=== PATIENT | female | born 1950 | race Caucasian/White ===

== ENCOUNTER 2016-08-21 08:12 | Day surgery (SDC) | payer OTHER ==
[2016-08-20 14:40] VITALS: BMI 34.0
[2016-08-21] MEDS ORDERED: LIDOCAINE HCL/PF 1% SDV 5ML VIAL ONE (09:02)
[2016-08-21] MEDS ORDERED: PROPOFOL 20 ML ONE ×2 (09:02)
[2016-08-21 09:56] VITALS: TEMP 97.5
[2016-08-21 10:38] VITALS: BP 121/63; PULSE 64
--- NOTE | 2016-08-24 12:51 | PATH ---
Surgical Pathology Report Patient Name: JENNI SINGH [facility]. Rec. #: [id number] /Age/Gender: 1950 (Age: 65) / F Account: [id number] Location: ASU-ENDOSCOPY Taken: 08/21/2016 Received: 08/21/2016 Reported: 08/24/2016 Physicians: Renzo Deleon M.D. Specimen(s) Received BX RECTAL POLYP Clinical History Diverticulosis, rectal polyp Final Diagnosis RECTUM, POLYP, BIOPSY: FRAGMENTS OF HYPERPLASTIC POLYP. Electronically Signed Scar Cantrell M.D. Gross Description Received in formalin, labeled "biopsy rectal polyp" are 2 acevedo, irregular portions of soft tissue measuring 0.1 and 0.2 cm in greatest dimension. The specimens are submitted in toto in one cassette. 08/21/201608/21/2016
== END 2016-08-21 10:55 | disposition home or self-care (01) ==
LOC: JASU-ENDO 08:12
PROVIDERS: ATTEND Internal Medicine Gastroenterology
PROC: 0DBP8ZX Excision of Rectum, Via Natural or Artificial Opening Endoscopic, Diagnostic (ICD-10-PCS; principal; 2016-08-21 09:00)
DX: Z12.11 Encounter for screening for malignant neoplasm of colon (principal); K62.1 Rectal polyp; K57.30 Diverticulosis of large intestine without perforation or abscess without bleeding; K64.8 Other hemorrhoids; Z98.0 Intestinal bypass and anastomosis status
CPT/HCPCS: 88305-TC

== ENCOUNTER → 2016-12-31 | Day surgery (SDC) | payer OTHER ==
--- NOTE | 2017-01-06 11:20 | PATH ---
Cytology Non-Gynecological Report Patient Name: HERNANDEZ SINGH [facility]. Rec. #: [id number] /Age/Gender: 1950 (Age: 66) / F Account: [id number] Location: RADIOLOGY Taken: 12/31/2016 Received: 12/31/2016 Reported: 01/04/2017 Physicians: Diamante Colindres M.D. Specimen(s) Received RIGHT THYROID FNA Clinical History Right thyroid nodule, 4.0 x 2.7 x 2.98 cm Final Diagnosis THYROID GLAND, RIGHT LOBE, US GUIDED FINE NEEDLE ASPIRATION BIOPSY: SATISFACTORY FOR EVALUATION. NO MALIGNANT CELLS IDENTIFIED. CONSISTENT WITH NODULAR GOITER WITH CYSTIC CHANGE (BENIGN FOLLICULAR NODULE, BETHESDA CATEGORY II, BENIGN), SEE COMMENT. Comment: The smears and the cell block show clusters of bland appearing follicular epithelial cells arranged in mixed micro- and macrofollicles and flat sheets. Many cells show Hurthle cell (oncocytic) changes. Macrophages are present indicative of cystic change. Colloid is present. Electronically Signed Scar Cantrell M.D. Gross Description Received are four air dried smears, four smears in 95% alcohol, and 20 cc of bloody fluid in formalin. Four diff-quik stained slides, four Pap stained slides and one cell block are made.
== END | disposition home or self-care (01) ==
LOC: JRADIR 08:42
PROVIDERS: ATTEND Internal Medicine
PROC: 0GBH3ZX Excision of Right Thyroid Gland Lobe, Percutaneous Approach, Diagnostic (ICD-10-PCS; principal; 2016-12-31)
PROC: BG44ZZZ Ultrasonography of Thyroid Gland (ICD-10-PCS; 2016-12-31)
DX: E04.1 Nontoxic single thyroid nodule (principal)
CPT/HCPCS: 76942; 88173; 88305-TC

== ENCOUNTER 2018-09-19 07:34 | Day surgery (SDC) | payer OTHER | END 2018-09-19 09:30 | disposition home or self-care (01) | LOC: JASU-ENDO 07:34 ==

== ENCOUNTER 2019-08-01 09:20 | Inpatient (IN) | payer OTHER ==
[2019-08-01] MEDS ORDERED: SODIUM CHLORIDE 1,000 ML IV STA (09:50)
[2019-08-01 10:31] LABS: BASO % 0.4 % (0-2.0); EOS % 0.2 % (0-4.5); HEMATOCRIT 45.3 % (32.4-45.2); HEMOGLOBIN 15.3 GM/dL (10.7-15.3); LYMPH % 9.6 % (8-40); MCH 32.2 pg (25.7-33.7); MCHC 33.8 g/dl (32.0-36.0); MEAN CELL VOLUME 95.4 fl (80-96); MEAN PLT VOLUME 9.1 fl (7.5-11.1); MONO % 9.8 % (3.8-10.2); PLATELET COUNT 288 K/MM3 (134-434); RBC 4.75 M/mm3 (3.60-5.2); RDW 13.3 % (11.6-15.6); WHITE BLOOD COUNT 18.1 K/mm3 (4.0-10.0)
[2019-08-01] MEDS ORDERED: ONDANSETRON 4 MG/2 ML VIAL IVPUSH ONE (10:37)
--- NOTE | 2019-08-01 10:37 | PDOC ---
Documentation entered by Blayne Martin SCRIBE, acting as scribe for Marcy Smiley MD. Marcy Smiley MD: This documentation has been prepared by the Veronica sweeney Nirvannie, SCRIBE, under my direction and personally reviewed by me in its entirety. I confirm that the documentation accurately reflects all work, treatment, procedures, and medical decision making performed by me. History of Present Illness - General Chief Complaint: Pain, Acute Stated Complaint: ABD PAIN/FEVER Time Seen by Provider: 08/01/19 09:51 History Source: Patient Exam Limitations: No Limitations - History of Present Illness Initial Comments: 08/01/19 10:53 68YOF, with a significant past medical history of HTN, diverticulitis (s/p 7cm colon resection, last [id number]), hypothyroidism, GERD, urinary frequency (s /p bladder/pelvic sling), and breast cyst, who presents to the emergency department with, 2-3 days of waxing and waning left-sided abdominal pain with associated decreased appetite, nausea, abdominal bloating, subjective fevers and chills. Patient describes her LUQ/LLQ pain radiating all over, currently a 6 /10, worsened with movement and eating. Patient notes her symptoms were worse yesterday and similar to her previous bouts of diverticulitis, prompting her arrival to the ED. She notes associated 1 day of constipation and 1 month of a cough. Denies chest pain, SOB, palpitations, dizziness, weakness, D, focal weakness/ paresthesias, leg swelling/pain, rash. No sick contacts, travel, or recent antibiotic. No new changes in medications. No suspicious food intake Allergies: Morphine Past Medical History/PSH: HTN, diverticulitis (s/p 7cm colon resection, last [id number]), GERD, urinary frequency (s/p urethral sling), and breast cyst, Cholecystectomy, Umbilical hernia repair, left knee replacement, unknown bilateral knee surgeries, unknown thyroid surgery. Social history: Lives with family. No tobacco, ETOH or drug use. Meds: as documented in EMR Family history: noncontributory PMD: Dr. Brenda Gagnon 08/01/19 12:31 Past History - Past Medical History Allergies/Adverse Reactions: Allergies Allergy/AdvReac Type Severity Reaction Status Date / Time morphine AdvReac Severe Vomiting Verified 08/01/19 09:30 Home Medications: Ambulatory Orders Hydrochlorothiazide [Hctz -] 12.5 mg PO DAILY 03/04/14 Levothyroxine [Synthroid -] 75 mcg PO DAILY 03/04/14 Metoprolol Succinate [Toprol Xl] 25 mg PO BID 03/04/14 Pantoprazole Sodium 40 mg PO DAILY 09/16/18 Candesartan Cilexetil [Atacand (Nf) -] 8 mg PO DAILY 08/01/19 Anemia: No Asthma: No Cancer: No Cardiac Disorders: No CVA: No COPD: No CHF: No Dementia: No Diabetes: Yes (BORDERLINE NO MED) GI Disorders: Yes Disorders: Yes (HAD UTI TREATED WITH ABX STARTED 05/30/15) HTN: Yes Hypercholesterolemia: Yes Liver Disease: No Seizures: No Thyroid Disease: Yes (H/O BENIGN MULTINODULAR GOITER, HYPO) - Surgical History Abdominal Surgery: Yes (RECURRENT DIVERTICULITIS 2003-SIGMOID COLON RESECTION) Appendectomy: No Cardiac Surgery: No Cholecystectomy: Yes (LAP) Lung Surgery: No Neurologic Surgery: No Orthopedic Surgery: Yes (LT KNEE REPLACEMENT) - Immunization History Immunization Up to Date: Yes - Psycho Social/Smoking Cessation Hx Smoking History: Never smoked Have you smoked in the past 12 months: No Hx Alcohol Use: No Drug/Substance Use Hx: No Substance Use Type: None Hx Substance Use Treatment: No Review of Systems - Review of Systems Able to Perform ROS?: Yes Comments:: 08/01/19 10:53 Constitutional: +Chills. +Subjective fevers. HEENT: no headache or dizziness. No congestion. No visual/hearing disturbances. CVS: no cp or syncope. Resp: no sob. +cough. Gastrointestinal: +LLQ/LUQ abdominal pain. no vomiting. no diarrhea or constipation Genitourinary: +Chronic frequency, no urinary urgency, dysuria or hematuria. MUSCULOSKELETAL: No joint pain and swelling. No neck or back pain. SKIN: no redness or skin changes, no discharge, no rash. No wounds. Hematologic: no easy bruising/bleeding. NEUROLOGIC: No headache, dizziness, LOC or altered mental status. No weakness, numbness or tingling. Psych: no anxiety or depression Allergic/Immunologic: no allergies All other systems reviewed and negative, or as documented in HPI. 08/01/19 12:32 *Physical Exam - Vital Signs Last Vital Signs Temp Pulse Resp BP Pulse Ox 97.9 F 99 H 16 133/79 99 08/01/19 09:31 08/01/19 09:31 08/01/19 09:31 08/01/19 09:31 08/01/19 09:31 - Physical Exam 08/01/19 10:53 General: Well appearing, awake and alert, NAD. HEENT: NCAT, PERRL, EOMI, clear conjunctiva, anicteric, moist mucous membranes , clear oropharynx, no oral lesions.. Neck: neck supple, FROM Resp: CTAB, normal and even respirations, no respiratory distress CVS: RRR, no murmurs, 2+ peripheral pulses throughout, no peripheral edema Abdomen: soft, +LUQ, LLQ abdominal tenderness. no rebound or guarding. No CVAT. +Abdominal surgical scars. Back: nontender, normal inspection and ROM MSK: no edema, JUAREZ x4, ROM intact. No clubbing or cyanosis. normal bulk and tone. Extremities: no calf tenderness +Blt lower venous varicosities left worse than right. Neuro: alert, oriented appropriately; no focal neurologic deficits Skin: warm and well perfused, cap refill <2 sec, normal color ED Treatment Course - LABORATORY CBC & Chemistry Diagram: 08/01/19 10:10 08/01/19 10:10 - ADDITIONAL ORDERS Additional order review: 08/01/19 10:10 RBC 4.75 MCV 95.4 MCHC 33.8 RDW 13.3 MPV 9.1 Neutrophils % 80.0 D Lymphocytes % 9.6 D Monocytes % 9.8 Eosinophils % 0.2 D Basophils % 0.4 - RADIOLOGY Radiology Studies Ordered: Category Date Time Status ABDOMEN & PELVIS CT WITH CONTR [CT] Stat CT Scan 08/01/19 10:34 Ordered Radiograph Interpretation: 08/01/19 11:42 Interpreted by ED Physician: CXR (2 view): no acute abnormality: no infiltrates , bones appear intact and structures normal alignment, cardiac silhouette within normal limits. no free air under diaphragm, no pneumothorax. Medical Decision Making - Medical Decision Making 08/01/19 10:36 Vital Signs Temp Pulse Resp BP Pulse Ox 97.9 F 99 H 16 133/79 99 08/01/19 09:31 08/01/19 09:31 08/01/19 09:31 08/01/19 09:31 08/01/19 09:31 vitals reviewed, wnl. afebrile, nontoxic appearing. DDx abdominal pain: Renal colic, biliary colic, metabolic/electrolyte derangements. GERD, PUD, esophageal spasm, pancreatitis, hepatitis, constipation , colitis, gastroenteritis, cholecystitis, UTI, pyelonephritis, ileus, SBO, medication side effect, hernia, appendicitis, diverticulitis, diverticular abscess, perforation. msk strain, mesenteric adenitis, psoas abscess. declines analgesia, 6/10 pain zofran and IVF PO contrast given prior surgery /complications, will need oral contrast to eval lumen. eval for complicated diverticular infection, cxr is clear, no e/o pna/effusion or edema. 08/01/19 11:06 Laboratory results reviewed, significant leukocytosis noted, 18 K, electrolytes are within normal limits, creatinine is normal. LFTs and lipase are also normal so unlikely to be pancreatitis or hepatitis. CT with p.o. contrast is pending to evaluate for diverticular disease/abscess/obstruction/perforation given complications with diverticulitis and recurrence in the past UA neg for infection, f/u cultures. 08/01/19 15:00 CT confirms acute diverticulitis w/o perf or abscess, cipro/flagyl IV given admitting to Dr Gagnon for acute uncomplicated diverticulitis, IV abx, NPO, bowel rest, pain control. prior history of complication, last time used levaquin and flagyl. Discharge - Discharge Information Problems reviewed: Yes Clinical Impression/Diagnosis: Acute diverticulitis Condition: Fair - Admission Yes - Follow up/Referral - Patient Discharge Instructions - Post Discharge Activity
[2019-08-01] MEDS ORDERED: ONDANSETRON 4 MG/2 ML VIAL ONE (10:48)
[2019-08-01 11:00] LABS: ALBUMIN 3.6 g/dl (3.4-5.0); BLOOD UREA NITROGEN 15.8 mg/dL (7-18); CALCIUM 9.1 mg/dL (8.5-10.1); CREATININE 0.7 mg/dL (0.55-1.3); TOT PROT 7.3 g/dl (6.4-8.2)
[2019-08-01 12:20] LABS: PH,URINE 5.5 (5.0-8.0); URINE APPEARANCE CLEAR; URINE BILIRUBIN NEGATIVE (NEGATIVE); URINE COLOR YELLOW; URINE GLUCOSE (UA) NEGATIVE (NEGATIVE); URINE KETONE NEGATIVE (NEGATIVE); URINE LEUK ESTERASE NEGATIVE (NEGATIVE); URINE NITRITE NEGATIVE (NEGATIVE); URINE PROTEIN NEGATIVE (NEGATIVE); URINE UROBILINOGEN 0.2 mg/dL (0.2-1.0)
[2019-08-01] MEDS ORDERED: CIPROFLOXACIN 400 MG/D5W 400 MG/200 ML IVPB IVPB ONE (14:20)
[2019-08-01] MEDS ORDERED: ONDANSETRON 4 MG/2 ML VIAL IVPUSH PRN (17:05)
[2019-08-01] MEDS ORDERED: ACETAMINOPHEN 1000 MG/100 ML VIAL (NON FORMULARY) IVPB PRN (17:05)
--- NOTE | 2019-08-01 17:44 | CON.GI ---
Consult Consult Specialty:: Gastroenterology Referred by:: Dr. Brenda Gagnon Reason for Consultation:: Abdominal pain - History of Present Illness Chief Complaint: left sided abdominal pain for last week that got worse yesterday History of Present Illness: 68F developed left lateral abdominal sydney last week associated with worsening of her constipation. It became markedly worse yesterday and associated with chills. The pain is reminiscent of her previous episodes of diverticulitis. She last had a colonoscopy on 08/21/16 which revealed residual diverticulosis and a patent sigmoid anastomosis ( previous surgery for recurrent diverticulitis) and when a hyperplastic rectal polyp was removed. - History Source History Provided By: Patient Limitations to Obtaining History: No Limitations - Past Medical History Cardio/Vascular: Yes: HTN, Hyperlipdemia Gastrointestinal: Yes: Diverticulitis, Gastritis (H. pylori gastritis treated 2004), GERD, Other (hyperplastic rectal polyp rmeoved 09/01, had polyps removed ' 05 and . Has EUS with Dr. Feirro to evaluate adenopathy that proved to be benign) Rheumatology: Yes: Other (osteoarthritis) Endocrine: Yes: Hypothyroidism (multinodular goiter s/p hemithyroidectomy ) - Past Surgical History Past Surgical History: Yes: Cholecystectomy (lap choly), Colectomy (partial left colectomy for recurrent diverticulitis 2003), Colonoscopy, Hernia Repair ( incisional hernia repair with mesh ), Joint Replacement (left TKR) Additional Surgical History: multinodular goiter s/p hemithyroidectomy. 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year[place] age 35 History of Recent Travel: No Home Medications - Allergies Allergies/Adverse Reactions: Allergies Allergy/AdvReac Type Severity Reaction Status Date / Time morphine AdvReac Severe Vomiting Verified 08/01/19 09:30 - Home Medications Home Medications: Ambulatory Orders Hydrochlorothiazide [Hctz -] 12.5 mg PO DAILY 03/04/14 Levothyroxine [Synthroid -] 75 mcg PO DAILY 03/04/14 Metoprolol Succinate [Toprol Xl] 25 mg PO BID 03/04/14 Pantoprazole Sodium 40 mg PO DAILY 09/16/18 Candesartan Cilexetil [Atacand (Nf) -] 8 mg PO DAILY 08/01/19 Family Medical History Family Hx Cancer: Mother (breast cancer), Father ( of throat cancer), Sister (breast canmcer) Other Family History: 4 maternal aunts had breast cancer Review of Systems - Review of Systems Constitutional: reports: Chills, Loss of Appetite Eyes: reports: No Symptoms, Photophobia Neck: reports: No Symptoms Cardiovascular: reports: No Symptoms Respiratory: reports: No Symptoms Gastrointestinal: reports: Abdominal Pain, Constipation Physical Exam-GI Vital Signs: Vital Signs Temperature 97.9 F 08/01/19 17:30 Pulse Rate 87 08/01/19 17:30 Respiratory Rate 18 08/01/19 17:30 Blood Pressure 125/67 08/01/19 17:30 O2 Sat by Pulse Oximetry (%) 98 08/01/19 16:06 CBC,CMP WBC 18.1 K/mm3 (4.0-10.0) H 08/01/19 10:10 RBC 4.75 M/mm3 (3.60-5.2) 08/01/19 10:10 Hgb 15.3 GM/dL (10.7-15.3) 08/01/19 10:10 Hct 45.3 % (32.4-45.2) H 08/01/19 10:10 MCV 95.4 fl (80-96) 08/01/19 10:10 MCH 32.2 pg (25.7-33.7) 08/01/19 10:10 MCHC 33.8 g/dl (32.0-36.0) 08/01/19 10:10 RDW 13.3 % (11.6-15.6) 08/01/19 10:10 Plt Count 288 K/MM3 (134-434) 08/01/19 10:10 MPV 9.1 fl (7.5-11.1) 08/01/19 10:10 Absolute Neuts (auto) 14.5 K/mm3 (1.5-8.0) H 08/01/19 10:10 Neutrophils % 80.0 % (42.8-82.8) D 08/01/19 10:10 Lymphocytes % 9.6 % (8-40) D 08/01/19 10:10 Monocytes % 9.8 % (3.8-10.2) 08/01/19 10:10 Eosinophils % 0.2 % (0-4.5) D 08/01/19 10:10 Basophils % 0.4 % (0-2.0) 08/01/19 10:10 Nucleated RBC % 0 % (0-0) 08/01/19 10:10 Sodium 138 mmol/L (136-145) 08/01/19 10:10 Potassium 4.0 mmol/L (3.5-5.1) 08/01/19 10:10 Chloride 103 mmol/L (98-107) 08/01/19 10:10 Carbon Dioxide 28 mmol/L (21-32) 08/01/19 10:10 Anion Gap 7 MMOL/L (8-16) L 08/01/19 10:10 BUN 15.8 mg/dL (7-18) 08/01/19 10:10 Creatinine 0.7 mg/dL (0.55-1.3) 08/01/19 10:10 Est GFR (CKD-EPI)AfAm 103.18 08/01/19 10:10 Est GFR (CKD-EPI)NonAf 89.03 08/01/19 10:10 Random Glucose 121 mg/dL (74-106) H 08/01/19 10:10 Calcium 9.1 mg/dL (8.5-10.1) 08/01/19 10:10 Total Bilirubin 1.0 mg/dL (0.2-1) 08/01/19 10:10 AST 18 U/L (15-37) 08/01/19 10:10 ALT 26 U/L (13-61) 08/01/19 10:10 Alkaline Phosphatase 110 U/L (45-117) 08/01/19 10:10 Total Protein 7.3 g/dl (6.4-8.2) 08/01/19 10:10 Albumin 3.6 g/dl (3.4-5.0) 08/01/19 10:10 Lipase 153 U/L (73-393) 08/01/19 09:57 Current Medications Generic Name Dose Route Start Last Admin Trade Name Freq PRN Reason Stop Dose Admin Acetaminophen 1,000 mg 08/01/19 17:05 Ofirmev Injection - IVPB Q6H PRN MODERATE PAIN Dextrose/Sodium Chloride 20 meq in 1,000 mls @ 83 mls/hr 08/01/19 17:15 Dextrose 5%-Normal Saline+20 Meq Kcl - IV ASDIR GERMAN Metronidazole 500 mg in 100 mls @ 100 mls/hr 08/01/19 18:00 Flagyl 500mg Premixed Ivpb - IVPB Q8H-IV GERMAN Levofloxacin 500 mg in 100 mls @ 100 mls/hr 08/02/19 10:00 Levaquin 500 Mg Premixed Ivpb - IVPB DAILY GERMAN Protocol Ondansetron HCl 4 mg 08/01/19 17:05 Zofran Injection IVPUSH Q6H PRN NAUSEA AND/OR VOMITING Pantoprazole Sodium 40 mg 08/02/19 10:00 Protonix Iv IVPUSH DAILY GERMAN Constitutional: Yes: Well Nourished Eyes: Yes: Conjunctiva Clear HENT: Yes: Atraumatic Neck: Yes: Supple, Other (healed incision) Cardiovascular: Yes: Regular Rate and Rhythm Respiratory: Yes: CTA Bilaterally Gastrointestinal Inspection: Yes: Scars (helaed laparoscopic and vertical suprapubic incisions) ...Auscultate: Yes: Normoactive Bowel Sounds ...Palpate: Yes: Tenderness (left paraumbilical and LLQ), Other (no masses) ...Rectal Exam: Yes: Deferred Neurological: Yes: Alert, Oriented Labs: CBC, BMP 08/01/19 10:10 08/01/19 10:10 Imaging - Results Cat Scan: Report Reviewed ( Final Report CT ABDOMEN & PELVIS CT WITH CONTR Show Printer-Friendly Version Patient Name: Jenni Stark : 1950 ID: [id number] Study Date: 01-Aug-2019 13:36 [facility] Name: JENNI STARK DEPARTMENT OF RADIOLOGY Phys: Leia Smiley MD : 1950 Age: 68 Sex: F [facility] Acct: [id number] Loc: [address] Exam Date: 08/01/19 Status: [facility] [place] [address] Unit Number: [id number] EXAM#: TYPE/EXAM: RESULT: [id number] CT/ABDOMEN PELVIS CT WITH CONTR Evaluate for diverticulitis. Left lower quadrant pain. CT scan of the abdomen and pelvis following oral and intravenous contrast. Coronal and sagittal reformatted images were obtained 100 cc of Omnipaque 350 was intravenously injected Comparison: Prior CT scan of the abdomen pelvis dated 04/06/2020 sixth There are minimal atelectatic changes in the dependent portion of the lower lung. The heart is within normal limits in size. The stomach is only partially distended limiting its evaluation. Status post cholecystectomy surgical metallic clips are present. The liver is within normal limits in size. There is mild dilatation of the central intrahepatic bile ducts. Common bile ducts within normal limits in size. The spleen, pancreas and both adrenal glands appear unremarkable. Left renal exophytic lower pole cyst measuring 3.6 cm and right mid kidney smaller cyst measuring 1.7 cm, posteriorly. There is no evidence of hydronephrosis or gross renal stones. There is no evidence of small bowel obstruction. Multiple diverticula are again seen in the descending and sigmoid colon with wall thickening involving the distal descending and proximal sigmoid colon with significant stranding of the surrounding fat/edema and small amount of free fluid consistent with acute diverticulitis. No gross extraluminal air or abscess formation is identified. A few adjacent subcentimeter and almost borderline mesenteric lymph nodes are present. Moderately distended urinary bladder without wall thickening. Normal size uterus. There is a small amount of free fluid in the lower pelvis. Small fat -containing right inguinal hernia Moderately severe degenerative disc disease at L5-S1 level. Degenerative anterior spondylosis in the included lower thoracic spine Otherwise, visualized osseous structures appear intact. IMPRESSION: See discussion above Diverticulosis coli with acute diverticulitis involving the distal descending as well as the proximal sigmoid colon with significant stranding of the surrounding fat and a small amount of fluid without gross evidence of extraluminal air or abscess formation. Adjacent subcentimeter mesenteric lymph nodes are present. There is also a small amount of free fluid in the lower pelvis. Follow-up is needed. Reported By: Aristides Howard MD 08/01/191455 LEIA SMILEY Technologist: Kyle Duron Transcribed Date/Time: 08/01/191455 Window Installer: Aristides Howard Printed Date/Time: By: Signed by: Aristides Howard Signed on: 01-Aug-2019 14:56) Problem List - Problems (1) Acute diverticulitis Code(s): K57.92 - DVTRCLI OF INTEST, PART UNSP, W/O PERF OR ABSCESS W/O BLEED (2) History of partial colectomy Code(s): Z90.49 - ACQUIRED ABSENCE OF OTHER SPECIFIED PARTS OF DIGESTIVE TRACT (3) History of thyroid surgery Code(s): Z98.890 - OTHER SPECIFIED POSTPROCEDURAL STATES (4) Hypothyroidism Code(s): E03.9 - HYPOTHYROIDISM, UNSPECIFIED (5) Multinodular goiter Code(s): E04.2 - NONTOXIC MULTINODULAR GOITER (6) Colon polyps Code(s): K63.5 - POLYP OF COLON (7) Hiatal hernia with GERD Code(s): K21.9 - GASTRO-ESOPHAGEAL REFLUX DISEASE WITHOUT ESOPHAGITIS; K44.9 - DIAPHRAGMATIC HERNIA WITHOUT OBSTRUCTION OR GANGRENE (8) HTN (hypertension) Code(s): I10 - ESSENTIAL (PRIMARY) HYPERTENSION Assessment/Plan Assessment: - The picture is entirely c/w recurrent sigmoid/descending colon diverticulitis despite previous partial colectomy for this. Plan: -- Agree with NPO and IV antibiotics for now.
[2019-08-01] MEDS: D5-NS + 20 MEQ KCL - 20 MEQ/1,000 ML INFUS.BAG IV SCH (18:06)
[2019-08-02 08:35] LABS: BASO % 0.4 % (0-2.0); HEMATOCRIT 38.1 % (32.4-45.2); HEMOGLOBIN 12.7 GM/dL (10.7-15.3); LYMPH % 14.5 % (8-40); MCHC 33.4 g/dl (32.0-36.0); MEAN CELL VOLUME 95.9 fl (80-96); MEAN PLT VOLUME 8.9 fl (7.5-11.1); MONO % 9.9 % (3.8-10.2); NEUT % 74.2 % (42.8-82.8); PLATELET COUNT 230 K/MM3 (134-434); RBC 3.97 M/mm3 (3.60-5.2); RDW 13.3 % (11.6-15.6); WHITE BLOOD COUNT 14.1 K/mm3 (4.0-10.0)
[2019-08-02 08:55] LABS: ALBUMIN 2.7 g/dl (3.4-5.0); BILIRUBIN,TOTAL 1.1 mg/dL (0.2-1); BLOOD UREA NITROGEN 11.4 mg/dL (7-18); CALCIUM 8.1 mg/dL (8.5-10.1); CREATININE 0.6 mg/dL (0.55-1.3); POTASSIUM 3.9 mmol/L (3.5-5.1); TOT PROT 5.9 g/dl (6.4-8.2)
[2019-08-02] MEDS: PANTOPRAZOLE SODIUM 40 MG VIAL IVPUSH SCH (10:12)
--- NOTE | 2019-08-02 12:08 | PN.GI ---
GI Progress Note Subjective: GI NOte: Pain has much improved. No further chills. NO BM - Objective Vital Signs: Vital Signs Temperature 98.2 F 08/02/19 06:00 Pulse Rate 71 08/02/19 06:00 Respiratory Rate 20 08/02/19 06:00 Blood Pressure 100/52 L 08/02/19 06:00 O2 Sat by Pulse Oximetry (%) 93 L 08/01/19 21:00 Laboratory Tests 08/01/19 08/02/19 08/02/19 10:10 07:55 07:55 WBC 18.1 H 14.1 H Hgb 15.3 12.7 Albumin 2.7 L Constitutional: Calm ...Auscultate: Yes: Hypoactive Bowel Sounds ...Palpate: Yes: Soft, Tenderness (less left sided tenderness) Labs: CBC, BMP 08/02/19 07:55 08/02/19 07:55 Assessment/Plan Assessment: - Resolving recurrent sigmoid/descending colon diverticulitis despite previous partial colectomy for this. Plan: -- Clear liquids -- Continue antibiotics Problem List - Problems (1) Acute diverticulitis Code(s): K57.92 - DVTRCLI OF INTEST, PART UNSP, W/O PERF OR ABSCESS W/O BLEED (2) History of partial colectomy Code(s): Z90.49 - ACQUIRED ABSENCE OF OTHER SPECIFIED PARTS OF DIGESTIVE TRACT (3) History of thyroid surgery Code(s): Z98.890 - OTHER SPECIFIED POSTPROCEDURAL STATES (4) Hypothyroidism Code(s): E03.9 - HYPOTHYROIDISM, UNSPECIFIED (5) Multinodular goiter Code(s): E04.2 - NONTOXIC MULTINODULAR GOITER (6) Colon polyps Code(s): K63.5 - POLYP OF COLON (7) Hiatal hernia with GERD Code(s): K21.9 - GASTRO-ESOPHAGEAL REFLUX DISEASE WITHOUT ESOPHAGITIS; K44.9 - DIAPHRAGMATIC HERNIA WITHOUT OBSTRUCTION OR GANGRENE (8) HTN (hypertension) Code(s): I10 - ESSENTIAL (PRIMARY) HYPERTENSION
[2019-08-02] MEDS ORDERED: IBUPROFEN 600 MG TABLET (FP) PO PRN (12:18)
--- NOTE | 2019-08-02 12:57 | HP ---
Admitting History and Physical - Primary Care Physician PCP: Brenda Gagnon - Admission Chief Complaint: abdominal pain History of Present Illness: ER HISTORY - History of Present Illness Initial Comments: 08/01/19 10:53 68YOF, with a significant past medical history of HTN, diverticulitis (s/p 7cm colon resection, last [id number]), hypothyroidism, GERD, urinary frequency (s /p bladder/pelvic sling), and breast cyst, who presents to the emergency department with, 2-3 days of waxing and waning left-sided abdominal pain with associated decreased appetite, nausea, abdominal bloating, subjective fevers and chills. Patient describes her LUQ/LLQ pain radiating all over, currently a 6 /10, worsened with movement and eating. Patient notes her symptoms were worse yesterday and similar to her previous bouts of diverticulitis, prompting her arrival to the ED. She notes associated 1 day of constipation and 1 month of a cough. Denies chest pain, SOB, palpitations, dizziness, weakness, D, focal weakness/ paresthesias, leg swelling/pain, rash. No sick contacts, travel, or recent antibiotic. No new changes in medications. No suspicious food intake Pt examined by me on the floors Has been having abdominal pain x 3 days No diarrhea, fever or chills Nausea+ c/o pain in left thumb- did not do any strenuous activity History Source: Patient Limitations to Obtaining History: No Limitations - Past Medical History Cardiovascular: Yes: HTN, Hyperlipdemia Gastrointestinal: Yes: Diverticulitis, Gastritis (H. pylori gastritis treated 2004), GERD, Other (hyperplastic rectal polyp rmeoved 09/01, had polyps removed ' and . Has EUS with Dr. Fierro to evaluate adenopathy that proved to be benign) ...: No Rheumatology: Yes: Other (osteoarthritis) Endocrine: Yes: Hypothyroidism (multinodular goiter s/p hemithyroidectomy ) - Past Surgical History Past Surgical History: Yes: Cholecystectomy (lap choly), Colectomy (partial left colectomy for recurrent diverticulitis 2003), Colonoscopy, Hernia Repair ( incisional hernia repair with mesh '), Joint Replacement (left TKR) - Smoking History Smoking history: Never smoked Have you smoked in the past 12 months: No - Alcohol/Substance Use Hx Alcohol Use: Yes (socially) History of Substance Use: reports: None - Social History ADL: Independent 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 History of Recent Travel: No Home Medications - Allergies Allergies/Adverse Reactions: Allergies Allergy/AdvReac Type Severity Reaction Status Date / Time morphine AdvReac Severe Vomiting Verified 08/01/19 09:30 - Home Medications Home Medications: Ambulatory Orders Hydrochlorothiazide [Hctz -] 12.5 mg PO DAILY 03/04/14 Levothyroxine [Synthroid -] 75 mcg PO DAILY 03/04/14 Metoprolol Succinate [Toprol Xl] 25 mg PO BID 03/04/14 Pantoprazole Sodium 40 mg PO DAILY 09/16/18 Candesartan Cilexetil [Atacand (Nf) -] 8 mg PO DAILY 08/01/19 Review of Systems - Review of Systems Constitutional: denies: Chills, Fever Gastrointestinal: reports: Abdominal Pain, Nausea. denies: Diarrhea, Vomiting Physical Examination Vital Signs: Vital Signs Temperature 98.2 F 08/02/19 06:00 Pulse Rate 71 08/02/19 06:00 Respiratory Rate 20 08/02/19 06:00 Blood Pressure 100/52 L 08/02/19 06:00 O2 Sat by Pulse Oximetry (%) 93 L 08/01/19 21:00 Constitutional: Yes: No Distress, Calm Cardiovascular: Yes: Regular Rate and Rhythm Respiratory: Yes: CTA Bilaterally Gastrointestinal: Yes: Normal Bowel Sounds, Soft, Tenderness (LLQ+) Extremities: Yes: Other (left base of thumb tender and edema+ , warm) Edema: No Neurological: Yes: WNL, Alert Labs: CBC, BMP 08/02/19 07:55 08/02/19 07:55 Imaging - Results Chest X-ray: Image Reviewed (clear) Cat Scan: Report Reviewed (CT abd pelvis) Problem List - Problems (1) Acute diverticulitis Code(s): K57.92 - DVTRCLI OF INTEST, PART UNSP, W/O PERF OR ABSCESS W/O BLEED (2) Hypothyroidism Code(s): E03.9 - HYPOTHYROIDISM, UNSPECIFIED (3) Diverticulitis Code(s): K57.92 - DVTRCLI OF INTEST, PART UNSP, W/O PERF OR ABSCESS W/O BLEED Qualifiers: Diverticulitis site: large intestine Diverticulitis bleeding: without bleeding Diverticulitis complication: without perforation or abscess Qualified Code(s): K57.32 - Diverticulitis of large intestine without perforation or abscess without bleeding (4) HTN (hypertension) Code(s): I10 - ESSENTIAL (PRIMARY) HYPERTENSION Assessment/Plan PLAN Keep NPO Iv fluids Pain control IV antibiotics continue with meds check xray hand GI eval
[2019-08-02] MEDS: D5-NS + 20 MEQ KCL - 20 MEQ/1,000 ML INFUS.BAG IV SCH (18:15)
[2019-08-03] MEDS: D5-NS + 20 MEQ KCL - 20 MEQ/1,000 ML INFUS.BAG IV SCH ×3 (07:02→23:22)
[2019-08-03 08:18] LABS: BASO % 0.4 % (0-2.0); EOS % 2.9 % (0-4.5); HEMATOCRIT 38.3 % (32.4-45.2); LYMPH % 18.3 % (8-40); MCH 32.8 pg (25.7-33.7); MCHC 33.8 g/dl (32.0-36.0); MEAN CELL VOLUME 97.1 fl (80-96); MEAN PLT VOLUME 8.9 fl (7.5-11.1); MONO % 10.7 % (3.8-10.2); NEUT % 67.7 % (42.8-82.8); PLATELET COUNT 232 K/MM3 (134-434); RBC 3.95 M/mm3 (3.60-5.2); WHITE BLOOD COUNT 9.6 K/mm3 (4.0-10.0)
[2019-08-03 08:49] LABS: BLOOD UREA NITROGEN 7.4 mg/dL (7-18); CALCIUM 8.1 mg/dL (8.5-10.1); CREATININE 0.5 mg/dL (0.55-1.3); POTASSIUM 4.2 mmol/L (3.5-5.1)
[2019-08-03] MEDS: PANTOPRAZOLE SODIUM 40 MG VIAL IVPUSH SCH (09:46)
--- NOTE | 2019-08-03 12:07 | PN ---
Progress Note (short form) - Note Progress Note: Pain in abd better feeling nauseous has pain in left hand- base of thumb Vital Signs - 24 hr 08/02/19 08/02/19 08/02/19 14:00 17:25 21:00 Temperature 98 F 97.2 F L Pulse Rate 75 Respiratory 20 Rate Blood Pressure 138/74 O2 Sat by Pulse 95 Oximetry (%) 08/02/19 08/03/19 08/03/19 22:00 06:00 09:00 Temperature 98.0 F 98.2 F Pulse Rate 70 76 Respiratory 18 20 20 Rate Blood Pressure 126/70 113/62 O2 Sat by Pulse 97 Oximetry (%) 08/03/19 09:38 Temperature 98.7 F Pulse Rate 77 Respiratory 20 Rate Blood Pressure 144/81 O2 Sat by Pulse Oximetry (%) Current Medications Generic Name Dose Route Start Last Admin Trade Name Freq PRN Reason Stop Dose Admin Acetaminophen 1,000 mg 08/01/19 17:05 08/02/19 11:26 Ofirmev Injection - IVPB 1,000 mg Q6H PRN Administration MODERATE PAIN Dextrose/Sodium Chloride 20 meq in 1,000 mls @ 83 mls/hr 08/01/19 17:15 08/03 07:02 Dextrose 5%-Normal Saline+20 Meq Kcl - IV 83 mls/hr ASDIR GERMAN Administration Metronidazole 500 mg in 100 mls @ 100 mls/hr 08/01/19 18:00 08/03/19 09:46 Flagyl 500mg Premixed Ivpb - IVPB 100 mls/hr Q8H-IV GERMAN Administration Levofloxacin 500 mg in 100 mls @ 100 mls/hr 08/02/19 10:00 08/03/19 10:53 Levaquin 500 Mg Premixed Ivpb - IVPB 100 mls/hr DAILY GERMAN Administration Protocol Ibuprofen 600 mg 08/02/19 12:18 Motrin - PO Q6H PRN FEVER Levothyroxine Sodium 75 mcg 08/04/19 10:00 Synthroid - PO DAILY GERMAN Metoprolol Succinate 25 mg 08/03/19 22:00 Toprol Xl - PO BID GERMAN Non-Formulary Medication 8 mg 08/04/19 10:00 Candesartan Cilexetil PO DAILY GERMAN Ondansetron HCl 4 mg 08/01/19 17:05 Zofran Injection IVPUSH Q6H PRN NAUSEA AND/OR VOMITING Pantoprazole Sodium 40 mg 08/02/19 10:00 08/03/19 09:46 Protonix Iv IVPUSH 40 mg DAILY GERMAN Administration S1 S2 RRR Lungs clear Abd- soft ,tender left LQ No edema warm and tender base of left thumb- able to move it PLAN continue with antibiotics advance to full liquid diet r/o gout xray hand negative check uric acid levels Problem List - Problems (1) Acute diverticulitis Code(s): K57.92 - DVTRCLI OF INTEST, PART UNSP, W/O PERF OR ABSCESS W/O BLEED (2) Colon polyps Code(s): K63.5 - POLYP OF COLON (3) Hypothyroidism Code(s): E03.9 - HYPOTHYROIDISM, UNSPECIFIED (4) Diverticulitis Code(s): K57.92 - DVTRCLI OF INTEST, PART UNSP, W/O PERF OR ABSCESS W/O BLEED Qualifiers: Diverticulitis site: large intestine Diverticulitis bleeding: without bleeding Diverticulitis complication: without perforation or abscess Qualified Code(s): K57.32 - Diverticulitis of large intestine without perforation or abscess without bleeding
--- NOTE | 2019-08-03 18:24 | PN.GI ---
GI Progress Note Subjective: GI NOte: Jessie was tolerating clear liquids and had a BM when I saw her earlier today so I advanced her to full liquids. - Objective Vital Signs: Vital Signs Temperature 97.9 F 08/03/19 17:02 Pulse Rate 72 08/03/19 17:02 Respiratory Rate 20 08/03/19 17:02 Blood Pressure 152/74 08/03/19 17:02 O2 Sat by Pulse Oximetry (%) 97 08/03/19 09:00 Constitutional: Calm ...Auscultate: Yes: Normoactive Bowel Sounds ...Palpate: Yes: Soft, Other (midl left sided tenderness) Labs: CBC, BMP 08/03/19 07:45 08/03/19 07:45 Assessment/Plan Assessment: - Resolving recurrent sigmoid/descending colon diverticulitis despite previous partial colectomy for this. Plan: -- Full liquids -- Continue antibiotics Problem List - Problems (1) Acute diverticulitis Code(s): K57.92 - DVTRCLI OF INTEST, PART UNSP, W/O PERF OR ABSCESS W/O BLEED (2) History of partial colectomy Code(s): Z90.49 - ACQUIRED ABSENCE OF OTHER SPECIFIED PARTS OF DIGESTIVE TRACT (3) History of thyroid surgery Code(s): Z98.890 - OTHER SPECIFIED POSTPROCEDURAL STATES (4) Hypothyroidism Code(s): E03.9 - HYPOTHYROIDISM, UNSPECIFIED (5) Multinodular goiter Code(s): E04.2 - NONTOXIC MULTINODULAR GOITER (6) Colon polyps Code(s): K63.5 - POLYP OF COLON (7) Hiatal hernia with GERD Code(s): K21.9 - GASTRO-ESOPHAGEAL REFLUX DISEASE WITHOUT ESOPHAGITIS; K44.9 - DIAPHRAGMATIC HERNIA WITHOUT OBSTRUCTION OR GANGRENE (8) HTN (hypertension) Code(s): I10 - ESSENTIAL (PRIMARY) HYPERTENSION
[2019-08-03] MEDS: metoPROLOL SUCCINATE 25 MG TAB.SR.24H (FP) PO SCH (22:06)
[2019-08-04] MEDS: LEVOTHYROXINE NA 75 MCG TABLET (FP) PO SCH (06:08)
--- NOTE | 2019-08-04 09:52 | PN ---
Progress Note (short form) - Note Progress Note: Pt seen/ examined chart is reviewed feels better decreased pain tolerating diet Vital Signs Temp 97.6 F 08/04/19 06:27 Pulse 69 08/04/19 06:27 Resp 20 08/04/19 06:27 BP 129/64 08/04/19 06:27 Pulse Ox 97 08/03/19 21:00 Intake & Output 08/03/19 08/03/19 08/04/19 11:59 23:59 11:59 Intake Total 1000 800 900 Balance 1000 800 900 Intake: IV 900 800 DEXTROSE 5%-NORMAL SALINE 900 800 +20 MEQ KCL - 20 meq In 1 ,000 ml @ 83 mls/hr IV ASDIR GERMAN Rx#:[id number] IVPB 100 200 100 Oral 600 Other: Voiding Method Toilet Toilet # Unmeasured Voids Void 1 2 1 Active Medications Acetaminophen (Ofirmev Injection -) 1,000 mg IVPB Q6H PRN PRN Reason: MODERATE PAIN Last Admin: 08/02/19 11:26 Dose: 1,000 mg Dextrose/Sodium Chloride (Dextrose 5%-Normal Saline+20 Meq Kcl -) 20 meq in 1, 000 mls @ 83 mls/hr IV ASDIR GERMAN Last Admin: 08/03/19 23:22 Dose: Not Given Metronidazole (Flagyl 500mg Premixed Ivpb -) 500 mg in 100 mls @ 100 mls/hr IVPB Q8H-IV GERMAN Last Admin: 08/04/19 01:31 Dose: 100 mls/hr Levofloxacin (Levaquin 500 Mg Premixed Ivpb -) 500 mg in 100 mls @ 100 mls/hr IVPB DAILY [facility] [place]; Protocol Last Admin: 08/03/19 10:53 Dose: 100 mls/hr Ibuprofen (Motrin -) 600 mg PO Q6H PRN PRN Reason: FEVER Levothyroxine Sodium (Synthroid -) 75 mcg PO AM [facility] [place] Last Admin: 08/04/19 06:08 Dose: 75 mcg Metoprolol Succinate (Toprol Xl -) 25 mg PO BID [facility] [place] Last Admin: 08/03/19 22:06 Dose: 25 mg Ondansetron HCl (Zofran Injection) 4 mg IVPUSH Q6H PRN PRN Reason: NAUSEA AND/OR VOMITING Pantoprazole Sodium (Protonix Iv) 40 mg IVPUSH DAILY [facility] [place] Last Admin: 08/03/19 09:46 Dose: 40 mg Valsartan (Diovan -) 80 mg PO DAILY [facility] CBC, BMP 08/03/19 07:45 08/03/19 07:45 Microbiology 08/01/19 12:10 Blood Culture - Preliminary Blood - Peripheral Venous NO GROWTH OBTAINED AFTER 48 HOURS, INCUBATION TO CONTINUE FOR 3 DAYS. 08/01/19 12:25 Blood Culture - Preliminary Blood - Peripheral Venous NO GROWTH OBTAINED AFTER 48 HOURS, INCUBATION TO CONTINUE FOR 3 DAYS. Physical Exam S1 S2 RRR Lungs clear Abd- soft ,tender left LQ No edema PLAN Better continue with antibiotics advance diet if better -- Anticipate d/c tomorrow Problem List - Problems (1) Acute diverticulitis Code(s): K57.92 - DVTRCLI OF INTEST, PART UNSP, W/O PERF OR ABSCESS W/O BLEED (2) Colon polyps Code(s): K63.5 - POLYP OF COLON (3) Hypothyroidism Code(s): E03.9 - HYPOTHYROIDISM, UNSPECIFIED (4) Diverticulitis Code(s): K57.92 - DVTRCLI OF INTEST, PART UNSP, W/O PERF OR ABSCESS W/O BLEED Qualifiers: Diverticulitis site: large intestine Diverticulitis bleeding: without bleeding Diverticulitis complication: without perforation or abscess Qualified Code(s): K57.32 - Diverticulitis of large intestine without perforation or abscess without bleeding continue same advance diet as tolerated Abx ambulate f/u labs- If better - anticipate d/c in am will follow
[2019-08-04] MEDS: VALSARTAN 80 MG TABLET (UD) PO SCH (09:58)
[2019-08-04] MEDS: metoPROLOL SUCCINATE 25 MG TAB.SR.24H (FP) PO SCH ×2 (09:58→21:37)
[2019-08-04] MEDS: PANTOPRAZOLE SODIUM 40 MG VIAL IVPUSH SCH (09:58)
[2019-08-04] MEDS: D5-NS + 20 MEQ KCL - 20 MEQ/1,000 ML INFUS.BAG IV SCH ×2 (14:13→17:29)
--- NOTE | 2019-08-04 15:37 | PN.GI ---
GI Progress Note Subjective: GI NOte: Pain much improved. Had another BM - Objective Vital Signs: Vital Signs Temperature 98.0 F 08/04/19 10:00 Pulse Rate 70 08/04/19 10:00 Respiratory Rate 20 08/04/19 10:00 Blood Pressure 145/78 08/04/19 15:21 O2 Sat by Pulse Oximetry (%) 97 08/04/19 09:00 Laboratory Tests 08/01/19 08/03/19 10:10 07:45 WBC 18.1 H 9.6 Constitutional: Calm ...Auscultate: Yes: Normoactive Bowel Sounds ...Palpate: Yes: Soft, Other (nontender) Labs: CBC, BMP 08/03/19 07:45 08/03/19 07:45 Assessment/Plan Assessment: - Resolving recurrent sigmoid/descending colon diverticulitis despite previous partial colectomy for this. Plan: -- Soft diet. If tolerated can discharge -- Continue antibiotics Problem List - Problems (1) Acute diverticulitis Code(s): K57.92 - DVTRCLI OF INTEST, PART UNSP, W/O PERF OR ABSCESS W/O BLEED (2) History of partial colectomy Code(s): Z90.49 - ACQUIRED ABSENCE OF OTHER SPECIFIED PARTS OF DIGESTIVE TRACT (3) History of thyroid surgery Code(s): Z98.890 - OTHER SPECIFIED POSTPROCEDURAL STATES (4) Hypothyroidism Code(s): E03.9 - HYPOTHYROIDISM, UNSPECIFIED (5) Multinodular goiter Code(s): E04.2 - NONTOXIC MULTINODULAR GOITER (6) Colon polyps Code(s): K63.5 - POLYP OF COLON (7) Hiatal hernia with GERD Code(s): K21.9 - GASTRO-ESOPHAGEAL REFLUX DISEASE WITHOUT ESOPHAGITIS; K44.9 - DIAPHRAGMATIC HERNIA WITHOUT OBSTRUCTION OR GANGRENE (8) HTN (hypertension) Code(s): I10 - ESSENTIAL (PRIMARY) HYPERTENSION
[2019-08-05] MEDS: LEVOTHYROXINE NA 75 MCG TABLET (FP) PO SCH (06:34)
[2019-08-05 09:03] LABS: BASO % 0.5 % (0-2.0); EOS % 3.1 % (0-4.5); HEMATOCRIT 38.8 % (32.4-45.2); HEMOGLOBIN 12.9 GM/dL (10.7-15.3); LYMPH % 18.5 % (8-40); MCHC 33.2 g/dl (32.0-36.0); MEAN CELL VOLUME 96.3 fl (80-96); MONO % 8.9 % (3.8-10.2); PLATELET COUNT 267 K/MM3 (134-434); RBC 4.03 M/mm3 (3.60-5.2); RDW 13.2 % (11.6-15.6); WHITE BLOOD COUNT 8.6 K/mm3 (4.0-10.0)
[2019-08-05 09:21] LABS: ALBUMIN 2.8 g/dl (3.4-5.0); BILIRUBIN,TOTAL 0.3 mg/dL (0.2-1); BLOOD UREA NITROGEN 10.8 mg/dL (7-18); CALCIUM 8.2 mg/dL (8.5-10.1); CREATININE 0.6 mg/dL (0.55-1.3); POTASSIUM 4.2 mmol/L (3.5-5.1); TOT PROT 5.7 g/dl (6.4-8.2)
[2019-08-05] MEDS: VALSARTAN 80 MG TABLET (UD) PO SCH (09:55)
[2019-08-05] MEDS: metoPROLOL SUCCINATE 25 MG TAB.SR.24H (FP) PO SCH (09:55)
[2019-08-05] MEDS: PANTOPRAZOLE SODIUM 40 MG VIAL IVPUSH SCH (09:56)
--- NOTE | 2019-08-05 10:08 | PN.GI ---
GI Progress Note Subjective: GI NOte: Tolerating solids. NO pain. Having BMs - Objective Vital Signs: Vital Signs Temperature 98.5 F 08/05/19 06:35 Pulse Rate 69 08/05/19 06:35 Respiratory Rate 17 08/05/19 06:35 Blood Pressure 161/89 08/05/19 06:35 O2 Sat by Pulse Oximetry (%) 97 08/04/19 09:00 CBC,CMP WBC 8.6 K/mm3 (4.0-10.0) 08/05/19 07:51 RBC 4.03 M/mm3 (3.60-5.2) 08/05/19 07:51 Hgb 12.9 GM/dL (10.7-15.3) 08/05/19 07:51 Hct 38.8 % (32.4-45.2) 08/05/19 07:51 MCV 96.3 fl (80-96) H 08/05/19 07:51 MCH 32.0 pg (25.7-33.7) 08/05/19 07:51 MCHC 33.2 g/dl (32.0-36.0) 08/05/19 07:51 RDW 13.2 % (11.6-15.6) 08/05/19 07:51 Plt Count 267 K/MM3 (134-434) 08/05/19 07:51 MPV 9.0 fl (7.5-11.1) 08/05/19 07:51 Absolute Neuts (auto) 5.9 K/mm3 (1.5-8.0) 08/05/19 07:51 Neutrophils % 69.0 % (42.8-82.8) 08/05/19 07:51 Lymphocytes % 18.5 % (8-40) 08/05/19 07:51 Monocytes % 8.9 % (3.8-10.2) 08/05/19 07:51 Eosinophils % 3.1 % (0-4.5) 08/05/19 07:51 Basophils % 0.5 % (0-2.0) 08/05/19 07:51 Nucleated RBC % 0 % (0-0) 08/05/19 07:51 Sodium 141 mmol/L (136-145) 08/05/19 07:51 Potassium 4.2 mmol/L (3.5-5.1) 08/05/19 07:51 Chloride 110 mmol/L (98-107) H 08/05/19 07:51 Carbon Dioxide 26 mmol/L (21-32) 08/05/19 07:51 Anion Gap 5 MMOL/L (8-16) L 08/05/19 07:51 BUN 10.8 mg/dL (7-18) 08/05/19 07:51 Creatinine 0.6 mg/dL (0.55-1.3) 08/05/19 07:51 Est GFR (CKD-EPI)AfAm 108.55 08/05/19 07:51 Est GFR (CKD-EPI)NonAf 93.66 08/05/19 07:51 Random Glucose 108 mg/dL (74-106) H 08/05/19 07:51 Calcium 8.2 mg/dL (8.5-10.1) L 08/05/19 07:51 Total Bilirubin 0.3 mg/dL (0.2-1) 08/05/19 07:51 AST 17 U/L (15-37) 08/05/19 07:51 ALT 19 U/L (13-61) 08/05/19 07:51 Alkaline Phosphatase 81 U/L (45-117) 08/05/19 07:51 C-Reactive Protein 10.0 MG/DL (0.00-0.3) H 08/03/19 07:45 Total Protein 5.7 g/dl (6.4-8.2) L 08/05/19 07:51 Albumin 2.8 g/dl (3.4-5.0) L 08/05/19 07:51 Lipase 153 U/L (73-393) 08/01/19 09:57 Constitutional: No Distress ...Auscultate: Yes: Normoactive Bowel Sounds ...Palpate: Yes: Soft, Other (nontender) Labs: CBC, BMP 08/05/19 07:51 08/05/19 07:51 Assessment/Plan Assessment: - Resolving recurrent sigmoid/descending colon diverticulitis despite previous partial colectomy for this. Plan: -- Tolerating soft diet. -- NO GI objections to discharge -- Continue po antibiotics at home for 7 more days Problem List - Problems (1) Acute diverticulitis Code(s): K57.92 - DVTRCLI OF INTEST, PART UNSP, W/O PERF OR ABSCESS W/O BLEED (2) History of partial colectomy Code(s): Z90.49 - ACQUIRED ABSENCE OF OTHER SPECIFIED PARTS OF DIGESTIVE TRACT (3) History of thyroid surgery Code(s): Z98.890 - OTHER SPECIFIED POSTPROCEDURAL STATES (4) Hypothyroidism Code(s): E03.9 - HYPOTHYROIDISM, UNSPECIFIED (5) Multinodular goiter Code(s): E04.2 - NONTOXIC MULTINODULAR GOITER (6) Colon polyps Code(s): K63.5 - POLYP OF COLON (7) Hiatal hernia with GERD Code(s): K21.9 - GASTRO-ESOPHAGEAL REFLUX DISEASE WITHOUT ESOPHAGITIS; K44.9 - DIAPHRAGMATIC HERNIA WITHOUT OBSTRUCTION OR GANGRENE (8) HTN (hypertension) Code(s): I10 - ESSENTIAL (PRIMARY) HYPERTENSION
--- NOTE | 2019-08-05 11:45 | DS ---
Physical Examination Vital Signs: Vital Signs Temperature 98.5 F 08/05/19 06:35 Pulse Rate 69 08/05/19 06:35 Respiratory Rate 17 08/05/19 06:35 Blood Pressure 161/89 08/05/19 06:35 O2 Sat by Pulse Oximetry (%) 97 08/04/19 09:00 Constitutional: Yes: No Distress, Calm Cardiovascular: Yes: Regular Rate and Rhythm Respiratory: Yes: CTA Bilaterally Gastrointestinal: Yes: Normal Bowel Sounds, Soft. No: Tenderness Edema: No Labs: CBC, BMP 08/05/19 07:51 08/05/19 07:51 Discharge Summary Problems reviewed: Yes Reason For Visit: DIVERTICULITIS Current Active Problems Acute diverticulitis (Acute) Colon polyps (Acute) Hiatal hernia with GERD (Acute) History of partial colectomy (Acute) History of thyroid surgery (Acute) Hypothyroidism (Acute) Multinodular goiter (Acute) Hospital Course: Admitted for recurrent diverticulitis CT abd showed the same Seen by GI Started on antibiotics m iv fluids advanced diet and pot is tolerating regular meals Pain is better She is stable for dc home on po antibiotics x 7 days Condition: Fair - Instructions Disposition: HOME - Home Medications Comprehensive Discharge Medication List: Ambulatory Orders Hydrochlorothiazide [Hctz -] 12.5 mg PO DAILY 03/04/14 Levothyroxine [Synthroid -] 75 mcg PO DAILY 03/04/14 Metoprolol Succinate [Toprol Xl] 25 mg PO BID 03/04/14 Pantoprazole Sodium 40 mg PO DAILY 09/16/18 Candesartan Cilexetil [Atacand -] 8 mg PO DAILY 08/01/19 Pantoprazole Sodium [Protonix -] 40 mg PO DAILY #7 tablet.ec 08/05/19 levoFLOXacin [Levaquin -] 500 mg PO DAILY #7 tablet 08/05/19 metroNIDAZOLE [Flagyl -] 500 mg PO TID #21 tablet 08/05/19
[2019-08-05 12:34] VITALS: BP 155/85; PULSE 76; TEMP 98
== END 2019-08-05 12:55 | disposition home or self-care (01) | DRG 392 ==
LOC: JER 09:20 → JERBED 14:59 → J8W 17:19
PROVIDERS: ADMIT Internal Medicine; ATTEND Internal Medicine
DX: K57.32 Diverticulitis of large intestine without perforation or abscess without bleeding (principal); K63.5 Polyp of colon; E03.9 Hypothyroidism, unspecified; K44.9 Diaphragmatic hernia without obstruction or gangrene; K21.9 Gastro-esophageal reflux disease without esophagitis; I10 Essential (primary) hypertension
CPT/HCPCS: 36415; 71046-TC-FY; 73130-TC-LT-FY; 74177-TC; 80048; 80053; 81003; 83690; 85025; 86140; 87040; 87086; 99284-25; J0131; J7030; Q9967

== ENCOUNTER 2022-02-11 06:44 | Day surgery (SDC) | payer OTHER ==
[2022-02-11] MEDS ORDERED: CEFAZOLIN 2 GM in DEXTROSE 5%-WATER - 100 ML IVPB ONE (07:15)
[2022-02-11] MEDS ORDERED: MIDAZOLAM HCL 2 MG/2 ML SINGLE DOSE VIAL ONE ×2 (09:33→10:00)
[2022-02-11] MEDS ORDERED: BUPIVACAINE LIPOSOME/PF (EXPAREL) 266 MG/20 ML VIAL ONE (09:33)
[2022-02-11] MEDS ORDERED: SODIUM CHLORIDE 0.9% P/F 10 ML VIAL IJ ONE (09:34)
[2022-02-11] MEDS ORDERED: BUPIVACAINE HCL/PF 0.5% (5MG/ML) 10 ML VIAL ONE ×2 (09:34→09:47)
[2022-02-11] MEDS ORDERED: FENTANYL CITRATE/PF 50 MCG/ML VIAL ONE (09:47)
[2022-02-11] MEDS ORDERED: PROPOFOL 20 ML ONE ×2 (10:00)
[2022-02-11] MEDS ORDERED: SUCCINYLCHOLINE CHLORIDE 200 MG/10 ML SYRINGE ONE (10:00)
[2022-02-11] MEDS ORDERED: ONDANSETRON 4 MG/2 ML VIAL ONE (10:01)
[2022-02-11] MEDS ORDERED: ceFAZolin SODIUM 1 GM VIAL ONE (10:01)
[2022-02-11] MEDS ORDERED: DEXAMETHASONE SOD PHOSPHATE 4 MG/1 ML VIAL ONE (10:01)
[2022-02-11] MEDS ORDERED: TRANEXAMIC ACID 1000 MG/10 ML VIAL ONE (10:01)
[2022-02-11] MEDS ORDERED: MAGNESIUM HYDROX 2400MG/30ML ORAL SUSPENSION 30 ML CUP PO PRN (12:16)
[2022-02-11] MEDS ORDERED: MAG HYDROX/AL HYDROX/SIMETH 30 ML UNIT-DOSE CUP PO PRN (12:16)
[2022-02-11] MEDS ORDERED: ONDANSETRON 4 MG/2 ML VIAL IVPUSH PRN ×2 (12:16→12:33)
[2022-02-11] MEDS ORDERED: oxyCODONE HCL 5 MG TABLET PO PRN ×4 (12:24→12:33)
[2022-02-11] MEDS ORDERED: LACTATED RINGERS SOLUTION 1,000 ML IV SCH (12:30)
[2022-02-11] MEDS ORDERED: ACETAMINOPHEN 500 MG TABLET (FP) PO SCH (12:45)
[2022-02-11] MEDS ORDERED: ACETAMINOPHEN INJECTION 100 ML IVPB ONE (13:26)
[2022-02-11] MEDS ORDERED: CEFAZOLIN SODIUM 2 GM VIAL ONE (18:18)
[2022-02-11] MEDS ORDERED: DEXTROSE 5%-WATER 100 ML IVPB ONE (18:18)
[2022-02-11] MEDS: CEFAZOLIN SODIUM 2 GM in DEXTROSE 5%-WATER 100 ML IVPB SCH (19:11)
[2022-02-11] MEDS: SENNOSIDES/DOCUSATE COMBO (SENNA PLUS) TABLET (UD) PO SCH (20:00)
[2022-02-11] MEDS: ACETAMINOPHEN 1000 MG/100 ML BAG IVPB SCH (20:06)
[2022-02-11] MEDS: CELECOXIB 100 MG CAPSULE PO SCH (22:00)
[2022-02-11] MEDS: ASPIRIN COATED 81 MG TABLET.EC PO SCH (22:00)
[2022-02-12] MEDS ORDERED: CEFAZOLIN SODIUM 2 GM VIAL ONE ×2 (00:38→00:45)
[2022-02-12] MEDS ORDERED: DEXTROSE 5%-WATER 100 ML IVPB ONE ×2 (00:38→00:45)
[2022-02-12] MEDS: CEFAZOLIN SODIUM 2 GM in DEXTROSE 5%-WATER 100 ML IVPB SCH (02:55)
[2022-02-12] MEDS: ACETAMINOPHEN 1000 MG/100 ML BAG IVPB SCH ×2 (03:18→10:15)
[2022-02-12] MEDS ORDERED: LEVOTHYROXINE NA 75 MCG TABLET (FP) PO SCH (07:00)
[2022-02-12 08:27] LABS: CALCIUM 8.7 mg/dl (8.5-10); CREATININE 0.5 mg/dl (0.55-1.3)
[2022-02-12 08:49] LABS: HEMATOCRIT 38.9 % (32.4-45.2); HEMOGLOBIN 13.4 G/dL (10.7-15.3); MCH 32.8 pg (25.7-33.7); MCHC 34.3 g/dl (32.0-36.0); MEAN CELL VOLUME 95.7 fl (80-96); PLATELET COUNT 230.7 10^3/uL (134-434); RBC 4.07 10^6/uL (3.60-5.2); RDW 13.4 % (11.6-15.6); WHITE BLOOD COUNT 17.6 10^3/uL (4.0-10.8)
[2022-02-12] MEDS ORDERED: PANTOPRAZOLE 40 MG TABLET PO SCH (10:00)
[2022-02-12] MEDS ORDERED: metoPROLOL SUCCINATE 25 MG TAB.SR.24H (FP) PO SCH (10:00)
[2022-02-12] MEDS ORDERED: PATIENT'S OWN MEDICATION (NON-FORMULARY) (Candesartan Cilexetil 8 MG Tablet) PO SCH (10:00)
[2022-02-12] MEDS ORDERED: LOSARTAN POTASSIUM 50 MG TABLET PO SCH (10:00)
[2022-02-12] MEDS ORDERED: MULTIVITAMINS (DAILY MVI) TABLET (FP) PO SCH (10:00)
[2022-02-12] MEDS: ASPIRIN COATED 81 MG TABLET.EC PO SCH (10:13)
[2022-02-12] MEDS: CELECOXIB 100 MG CAPSULE PO SCH (10:14)
[2022-02-12] MEDS: SENNOSIDES/DOCUSATE COMBO (SENNA PLUS) TABLET (UD) PO SCH (10:14)
[2022-02-12 12:01] VITALS: BP 121/57; PULSE 64; TEMP 98.6
== END 2022-02-12 16:48 | disposition home or self-care (01) ==
LOC: FASUSAT 06:44 → FM/S 13:55 → FASUSAT 02-12 16:48
PROVIDERS: ATTEND Orthopaedic Surgery
PROC: 0SRC0J9 Replacement of Right Knee Joint with Synthetic Substitute, Cemented, Open Approach (ICD-10-PCS; principal; 2022-02-11 10:19)
DX: M17.11 Unilateral primary osteoarthritis, right knee (principal)
CPT/HCPCS: 27447; C1776; 36415; 73560-TC-RT-FY; 80048; 85027; 88305-TC; 88311-TC; 94760; 97010-GP; 97116-GP; 97162-GP

== ENCOUNTER 2022-02-14 04:48 | Inpatient (IN) | payer OTHER ==
[2022-02-14 04:57] VITALS: BMI 34.9
[2022-02-14] MEDS ORDERED: IBUPROFEN 600 MG TABLET (FP) PO ONE ×2 (05:38→05:53)
[2022-02-14] MEDS ORDERED: ACETAMINOPHEN INJECTION 100 ML IVPB ONE (06:33)
[2022-02-14] MEDS ORDERED: ACETAMINOPHEN 1000 MG/100 ML BAG IVPB ONE (06:36)
[2022-02-14] MEDS ORDERED: SODIUM CHLORIDE 0.9% 500 ML INFUS.BAG IV ONE (06:54)
[2022-02-14] MEDS ORDERED: KETAMINE HCL 200 MG/20 ML VIAL ONE (07:23)
[2022-02-14] MEDS ORDERED: LEVOTHYROXINE NA 75 MCG TABLET (FP) PO ONE (08:08)
[2022-02-14] MEDS ORDERED: PANTOPRAZOLE 40 MG TABLET PO ONE ×2 (08:08→09:06)
[2022-02-14 08:24] LABS: BLOOD UREA NITROGEN 15.8 mg/dL (7-18); CALCIUM 8.6 mg/dL (8.5-10.1)
[2022-02-14 08:27] LABS: BASO % 0.5 % (0-2.0); HEMATOCRIT 39.6 % (32.4-45.2); HEMOGLOBIN 13.1 GM/dL (10.7-15.3); MCH 31.9 pg (25.7-33.7); MEAN CELL VOLUME 96.6 fl (80-96); MEAN PLT VOLUME 9.8 fl (7.5-11.1); MONO % 9.5 % (3.8-10.2); PLATELET COUNT 240 10^3/uL (134-434); RDW 13.6 % (11.6-15.6); WHITE BLOOD COUNT 13.9 K/mm3 (4.0-10.0)
[2022-02-14 08:28] LABS: CREATININE 0.6 mg/dL (0.55-1.3); INR 1.09 (0.83-1.09); PROTHROMBIN TIME (PATIENT) 12.6 SEC (9.7-13.0)
[2022-02-14 08:29] LABS: BILIRUBIN,TOTAL 0.8 mg/dL (0.2-1); TOT PROT 6.3 g/dl (6.4-8.2)
[2022-02-14] MEDS ORDERED: LIDOCAINE HCL 1%, 10 MG/ML (20ML VIAL) ONE (08:31)
[2022-02-14] MEDS ORDERED: LIDOCAINE HCL 1%, 10 MG/ML (50 mL VIAL) SQ ONE (08:32)
[2022-02-14] MEDS ORDERED: LEVOTHYROXINE NA 75 MCG TABLET (FP) ONE (09:06)
[2022-02-14] MEDS ORDERED: KETAMINE HCL 200 MG/20 ML VIAL IVPUSH ONE ×2 (10:34→10:38)
[2022-02-14] MEDS ORDERED: DEXTROSE 5%-WATER - 50 ML IVPB ONE (14:41)
[2022-02-14] MEDS ORDERED: ceFAZolin SODIUM 1 GM VIAL ONE ×2 (14:41→17:22)
[2022-02-14] MEDS: CEFAZOLIN 1 GM in DEXTROSE 5%-WATER - 50 ML IVPB SCH ×2 (14:42→17:53)
[2022-02-14] MEDS: KETOROLAC TROMETHAMINE 10 MG TABLET PO PRN (14:54)
[2022-02-14] MEDS: metoPROLOL SUCCINATE 25 MG TAB.SR.24H (FP) PO SCH (21:37)
[2022-02-15] MEDS ORDERED: ceFAZolin SODIUM 1 GM VIAL ONE ×3 (01:30→17:15)
[2022-02-15] MEDS ORDERED: DEXTROSE 5%-WATER - 50 ML IVPB ONE ×3 (01:30→17:16)
[2022-02-15] MEDS: CEFAZOLIN 1 GM in DEXTROSE 5%-WATER - 50 ML IVPB SCH ×3 (01:32→17:29)
[2022-02-15] MEDS: LEVOTHYROXINE NA 75 MCG TABLET (FP) PO SCH (06:04)
[2022-02-15] MEDS: KETOROLAC TROMETHAMINE 10 MG TABLET PO PRN ×2 (08:19→22:17)
[2022-02-15] MEDS: LOSARTAN POTASSIUM 50 MG TABLET PO SCH (09:29)
[2022-02-15] MEDS: PANTOPRAZOLE 40 MG TABLET PO SCH (09:29)
[2022-02-15] MEDS: ENOXAPARIN NA (PORCINE) 40 MG/0.4 ML DISP.SYRIN SQ SCH (09:29)
[2022-02-15] MEDS: metoPROLOL SUCCINATE 25 MG TAB.SR.24H (FP) PO SCH ×2 (09:29→21:05)
[2022-02-15] MEDS ORDERED: FUROSEMIDE 20 MG TABLET (FP) PO ONE (10:37)
[2022-02-16] MEDS ORDERED: ceFAZolin SODIUM 1 GM VIAL ONE ×3 (01:50→17:49)
[2022-02-16] MEDS ORDERED: DEXTROSE 5%-WATER - 50 ML IVPB ONE ×3 (01:51→17:49)
[2022-02-16] MEDS: CEFAZOLIN 1 GM in DEXTROSE 5%-WATER - 50 ML IVPB SCH ×3 (01:53→17:52)
[2022-02-16] MEDS: LEVOTHYROXINE NA 75 MCG TABLET (FP) PO SCH (06:08)
[2022-02-16] MEDS: ENOXAPARIN NA (PORCINE) 40 MG/0.4 ML DISP.SYRIN SQ SCH (09:07)
[2022-02-16] MEDS: PANTOPRAZOLE 40 MG TABLET PO SCH (09:07)
[2022-02-16] MEDS: metoPROLOL SUCCINATE 25 MG TAB.SR.24H (FP) PO SCH ×2 (09:07→22:30)
[2022-02-16] MEDS: KETOROLAC TROMETHAMINE 10 MG TABLET PO PRN ×2 (09:07→22:30)
[2022-02-16] MEDS: LOSARTAN POTASSIUM 50 MG TABLET PO SCH (09:07)
[2022-02-16] MEDS ORDERED: FUROSEMIDE 40 MG/4 ML INJECTABLE VIAL IVPUSH ONE (14:00)
[2022-02-17] MEDS ORDERED: ceFAZolin SODIUM 1 GM VIAL ONE ×2 (02:28→09:28)
[2022-02-17] MEDS ORDERED: DEXTROSE 5%-WATER - 50 ML IVPB ONE ×2 (02:29→09:28)
[2022-02-17] MEDS: CEFAZOLIN 1 GM in DEXTROSE 5%-WATER - 50 ML IVPB SCH ×2 (02:32→09:30)
[2022-02-17] MEDS: KETOROLAC TROMETHAMINE 10 MG TABLET PO PRN (06:45)
[2022-02-17] MEDS: LEVOTHYROXINE NA 75 MCG TABLET (FP) PO SCH (06:45)
[2022-02-17 09:19] LABS: BASO % 0.8 % (0-2.0); EOS % 5.7 % (0-4.5); HEMATOCRIT 38.4 % (32.4-45.2); HEMOGLOBIN 12.8 GM/dL (10.7-15.3); MCH 32.2 pg (25.7-33.7); MCHC 33.4 g/dl (32.0-36.0); MEAN CELL VOLUME 96.4 fl (80-96); MONO % 9.9 % (3.8-10.2); NEUT % 70.6 % (42.8-82.8); PLATELET COUNT 293 10^3/uL (134-434); RBC 3.99 M/mm3 (3.60-5.2); RDW 13.6 % (11.6-15.6); WHITE BLOOD COUNT 11.7 K/mm3 (4.0-10.0)
[2022-02-17] MEDS: PANTOPRAZOLE 40 MG TABLET PO SCH (09:30)
[2022-02-17] MEDS: LOSARTAN POTASSIUM 50 MG TABLET PO SCH (09:30)
[2022-02-17] MEDS: ENOXAPARIN NA (PORCINE) 40 MG/0.4 ML DISP.SYRIN SQ SCH (09:30)
[2022-02-17] MEDS: metoPROLOL SUCCINATE 25 MG TAB.SR.24H (FP) PO SCH (09:30)
[2022-02-17 09:44] LABS: CALCIUM 8.7 mg/dL (8.5-10.1)
[2022-02-17 09:45] LABS: BLOOD UREA NITROGEN 16.8 mg/dL (7-18)
[2022-02-17 09:48] LABS: CREATININE 0.6 mg/dL (0.55-1.3)
[2022-02-17 09:49] LABS: BILIRUBIN,TOTAL 1.1 mg/dL (0.2-1); TOT PROT 6.4 g/dl (6.4-8.2)
[2022-02-17 14:18] VITALS: BP 148/69; PULSE 81; TEMP 98.3
== END 2022-02-17 14:58 | disposition short-term general hospital (02) | DRG 563 ==
LOC: JER 04:48 → JERBED 10:57 → J6S 13:29
PROVIDERS: ADMIT Internal Medicine; ATTEND Internal Medicine
PROC: 0QSJXZZ Reposition Right Fibula, External Approach (ICD-10-PCS; principal; 2022-02-14)
DX: S82.491A Other fracture of shaft of right fibula, initial encounter for closed fracture (principal); I10 Essential (primary) hypertension; E78.5 Hyperlipidemia, unspecified; K21.9 Gastro-esophageal reflux disease without esophagitis; E03.9 Hypothyroidism, unspecified; E66.9 Obesity, unspecified; Z68.34 Body mass index [BMI] 34.0-34.9, adult; W18.39XA Other fall on same level, initial encounter; Y93.89 Activity, other specified; Y92.89 Other specified places as the place of occurrence of the external cause; Z96.651 Presence of right artificial knee joint
CPT/HCPCS: 36415; 73610-TC-RT-FY; 73630-TC-RT-FY; 80053; 82962; 85025; 85610; 86850; 86900; 86901; 93005; 93010; 97116-GP; 97162-GP; 99285-25; C9803-CS; U0003; U0005

== ENCOUNTER 2023-04-24 06:31 | Inpatient (IN) | payer OTHER ==
[2023-04-24] MEDS ORDERED: ACETAMINOPHEN 1000 MG/100 ML BAG IVPB ONE (07:44)
[2023-04-24] MEDS ORDERED: ACETAMINOPHEN INJECTION 100 ML IVPB ONE (08:04)
[2023-04-24 09:05] LABS: URINE APPEARANCE CLEAR; URINE BILIRUBIN NEGATIVE (NEGATIVE); URINE COLOR YELLOW; URINE GLUCOSE (UA) 1+ (NEGATIVE); URINE KETONE NEGATIVE (NEGATIVE); URINE LEUK ESTERASE NEGATIVE (NEGATIVE); URINE NITRITE NEGATIVE (NEGATIVE); URINE PROTEIN NEGATIVE (NEGATIVE); URINE UROBILINOGEN 0.2 mg/dL (0.2-1.0)
[2023-04-24 09:10] LABS: INR 1.14 (0.83-1.09); PROTHROMBIN TIME (PATIENT) 13.2 SEC (9.7-13.0)
[2023-04-24 09:12] LABS: BASO % 0.4 % (0-2.0); HEMATOCRIT 41.2 % (32.4-45.2); HEMOGLOBIN 13.5 GM/dL (10.7-15.3); LYMPH % 11.1 % (8-40); MCH 31.5 pg (25.7-33.7); MCHC 32.8 g/dl (32.0-36.0); MEAN CELL VOLUME 96.1 fl (80-96); MEAN PLT VOLUME 9.9 fl (7.5-11.1); MONO % 8.9 % (3.8-10.2); NEUT % 78.6 % (42.8-82.8); PLATELET COUNT 278 10^3/uL (134-434); RBC 4.29 M/mm3 (3.60-5.2); RDW 13.4 % (11.6-15.6); WHITE BLOOD COUNT 14.5 K/mm3 (4.0-10.0)
[2023-04-24 09:14] LABS: ACTIVATED PTT 28.1 SECONDS (25.2-36.5)
[2023-04-24 09:44] LABS: POTASSIUM 4.9 mmol/L (3.5-5.1)
[2023-04-24 09:46] LABS: ALBUMIN 3.2 g/dl (3.4-5.0); BLOOD UREA NITROGEN 9.6 mg/dL (7-18); CALCIUM 8.8 mg/dL (8.5-10.1)
[2023-04-24 09:49] LABS: CREATININE 0.7 mg/dL (0.55-1.3)
[2023-04-24 09:50] LABS: BILIRUBIN,TOTAL 0.7 mg/dL (0.2-1); TOT PROT 6.6 g/dl (6.4-8.2)
[2023-04-24] MEDS ORDERED: PIPERACILLIN/TAZOB 3.375 GM 3.375 GM in DEXTROSE 5%-WATER - 50 ML IVPB ONE (11:57)
[2023-04-24] MEDS ORDERED: PIPERACILLIN/TAZOB 3.375 GM 3.375 GM/50 ML BAG IVPB ONE (12:19)
[2023-04-24] MEDS ORDERED: SODIUM CHLORIDE 0.9% 500 ML INFUS.BAG IV ONE (12:27)
[2023-04-24] MEDS ORDERED: ACETAMINOPHEN 1000 MG/100 ML BAG IVPB PRN (17:05)
[2023-04-24] MEDS ORDERED: ONDANSETRON 4 MG/2 ML VIAL IVPUSH PRN (17:06)
[2023-04-24 17:48] VITALS: BMI 34.7
[2023-04-24] MEDS ORDERED: PIPERACILLIN/TAZOB 3.375 GM 3.375 GM in DEXTROSE 5%-WATER - 50 ML IVPB SCH (18:00)
[2023-04-24] MEDS: DEXTROSE 5%-0.45% SALINE 1,000 ML IV SCH (18:03)
[2023-04-24] MEDS: PIPERACILLIN/TAZOB 3.375 GM 3.375 GM in DEXTROSE 5%-WATER - 50 ML IVPB SCH (21:20)
[2023-04-25] MEDS: PIPERACILLIN/TAZOB 3.375 GM 3.375 GM in DEXTROSE 5%-WATER - 50 ML IVPB SCH ×2 (03:39→11:50)
[2023-04-25] MEDS: DEXTROSE 5%-0.45% SALINE 1,000 ML IV SCH ×2 (03:39→14:59)
[2023-04-25] MEDS: PIPERACILLIN/TAZOB 4.5 GM 4.5 GM in DEXTROSE 5%-WATER 100 ML IVPB SCH (17:43)
[2023-04-25 18:04] LABS: BASO % 0.3 % (0-2.0); EOS % 2.6 % (0-4.5); HEMATOCRIT 39.4 % (32.4-45.2); HEMOGLOBIN 13.2 GM/dL (10.7-15.3); LYMPH % 21.3 % (8-40); MCH 31.7 pg (25.7-33.7); MCHC 33.6 g/dl (32.0-36.0); MEAN CELL VOLUME 94.4 fl (80-96); MEAN PLT VOLUME 8.8 fl (7.5-11.1); MONO % 9.5 % (3.8-10.2); NEUT % 66.3 % (42.8-82.8); PLATELET COUNT 282 10^3/uL (134-434); RBC 4.18 M/mm3 (3.60-5.2); RDW 13.8 % (11.6-15.6); WHITE BLOOD COUNT 11.3 K/mm3 (4.0-10.0)
[2023-04-25 18:25] LABS: ALBUMIN 2.9 g/dl (3.4-5.0); BLOOD UREA NITROGEN 5.2 mg/dL (7-18); CALCIUM 8.1 mg/dL (8.5-10.1)
[2023-04-25 18:28] LABS: CREATININE 0.6 mg/dL (0.55-1.3)
[2023-04-25 18:30] LABS: BILIRUBIN,TOTAL 0.6 mg/dL (0.2-1)
[2023-04-25] MEDS ORDERED: ACETAMINOPHEN 1000 MG/100 ML BAG IVPB PRN (19:50)
[2023-04-26] MEDS: PIPERACILLIN/TAZOB 4.5 GM 4.5 GM in DEXTROSE 5%-WATER 100 ML IVPB SCH ×3 (02:46→18:21)
[2023-04-26] MEDS: DEXTROSE 5%-0.45% SALINE 1,000 ML IV SCH ×3 (06:02→19:02)
[2023-04-26 10:21] LABS: BASO % 0.4 % (0-2.0); EOS % 2.1 % (0-4.5); HEMOGLOBIN 13.7 GM/dL (10.7-15.3); LYMPH % 14.5 % (8-40); MCH 31.6 pg (25.7-33.7); MCHC 32.7 g/dl (32.0-36.0); MEAN CELL VOLUME 96.7 fl (80-96); MEAN PLT VOLUME 9.3 fl (7.5-11.1); MONO % 7.8 % (3.8-10.2); NEUT % 75.2 % (42.8-82.8); PLATELET COUNT 289 10^3/uL (134-434); RBC 4.34 M/mm3 (3.60-5.2); RDW 13.6 % (11.6-15.6); WHITE BLOOD COUNT 11.8 K/mm3 (4.0-10.0)
[2023-04-26] MEDS: LEVOTHYROXINE NA 75 MCG TABLET (FP) PO SCH (10:37)
[2023-04-26] MEDS: PANTOPRAZOLE 40 MG TABLET PO SCH (10:37)
[2023-04-26] MEDS: LOSARTAN POTASSIUM 50 MG TABLET PO SCH (10:37)
[2023-04-26] MEDS: ENOXAPARIN NA (PORCINE) 40 MG/0.4 ML DISP.SYRIN SQ SCH (10:38)
[2023-04-26] MEDS: metoPROLOL SUCCINATE 25 MG TAB.SR.24H (FP) PO SCH ×2 (10:38→21:16)
[2023-04-26 10:39] LABS: POTASSIUM 4.4 mmol/L (3.5-5.1)
[2023-04-26 10:41] LABS: ALBUMIN 2.8 g/dl (3.4-5.0); BLOOD UREA NITROGEN 4.3 mg/dL (7-18); CALCIUM 8.6 mg/dL (8.5-10.1); MAGNESIUM 1.9 mg/dL (1.8-2.4)
[2023-04-26 10:45] LABS: CREATININE 0.6 mg/dL (0.55-1.3)
[2023-04-26 10:46] LABS: TOT PROT 6.5 g/dl (6.4-8.2)
[2023-04-26 10:51] LABS: BILIRUBIN,TOTAL 0.7 mg/dL (0.2-1)
[2023-04-27] MEDS: PIPERACILLIN/TAZOB 4.5 GM 4.5 GM in DEXTROSE 5%-WATER 100 ML IVPB SCH ×3 (01:00→18:37)
[2023-04-27] MEDS: LEVOTHYROXINE NA 75 MCG TABLET (FP) PO SCH (06:22)
[2023-04-27] MEDS: metoPROLOL SUCCINATE 25 MG TAB.SR.24H (FP) PO SCH ×2 (10:20→21:39)
[2023-04-27] MEDS: PANTOPRAZOLE 40 MG TABLET PO SCH (10:21)
[2023-04-27] MEDS: ENOXAPARIN NA (PORCINE) 40 MG/0.4 ML DISP.SYRIN SQ SCH (10:21)
[2023-04-27] MEDS: LOSARTAN POTASSIUM 50 MG TABLET PO SCH (10:21)
[2023-04-27 10:57] LABS: BASO % 0.4 % (0-2.0); EOS % 2.9 % (0-4.5); HEMATOCRIT 41.5 % (32.4-45.2); HEMOGLOBIN 13.8 GM/dL (10.7-15.3); LYMPH % 17.2 % (8-40); MCH 31.6 pg (25.7-33.7); MCHC 33.3 g/dl (32.0-36.0); MEAN CELL VOLUME 94.9 fl (80-96); MEAN PLT VOLUME 8.7 fl (7.5-11.1); MONO % 6.6 % (3.8-10.2); NEUT % 72.9 % (42.8-82.8); PLATELET COUNT 317 10^3/uL (134-434); RBC 4.38 M/mm3 (3.60-5.2); RDW 13.4 % (11.6-15.6); WHITE BLOOD COUNT 11.1 K/mm3 (4.0-10.0)
[2023-04-27 11:17] LABS: POTASSIUM 3.9 mmol/L (3.5-5.1)
[2023-04-27 11:22] LABS: CALCIUM 8.5 mg/dL (8.5-10.1)
[2023-04-27 11:23] LABS: CREATININE 0.7 mg/dL (0.55-1.3)
[2023-04-27 11:25] LABS: BILIRUBIN,TOTAL 0.7 mg/dL (0.2-1); TOT PROT 6.5 g/dl (6.4-8.2)
[2023-04-27] MEDS: DEXTROSE 5%-0.45% SALINE 1,000 ML IV SCH ×2 (21:39→21:44)
[2023-04-28] MEDS ORDERED: PIPERACILLIN/TAZOBACTAM 4.5 GM VIAL IVPB ONE (01:32)
[2023-04-28] MEDS: PIPERACILLIN/TAZOB 4.5 GM 4.5 GM in DEXTROSE 5%-WATER 100 ML IVPB SCH ×3 (01:40→18:51)
[2023-04-28] MEDS: LEVOTHYROXINE NA 75 MCG TABLET (FP) PO SCH (06:09)
[2023-04-28] MEDS: DEXTROSE 5%-0.45% SALINE 1,000 ML IV SCH (09:12)
[2023-04-28] MEDS: metoPROLOL SUCCINATE 25 MG TAB.SR.24H (FP) PO SCH ×2 (10:24→21:40)
[2023-04-28] MEDS: LOSARTAN POTASSIUM 50 MG TABLET PO SCH (10:24)
[2023-04-28] MEDS: PANTOPRAZOLE 40 MG TABLET PO SCH (10:24)
[2023-04-28] MEDS: ENOXAPARIN NA (PORCINE) 40 MG/0.4 ML DISP.SYRIN SQ SCH (10:28)
[2023-04-28 11:09] LABS: BASO % 0.6 % (0-2.0); HEMATOCRIT 40.6 % (32.4-45.2); HEMOGLOBIN 13.7 GM/dL (10.7-15.3); LYMPH % 17.7 % (8-40); MCHC 33.7 g/dl (32.0-36.0); MEAN CELL VOLUME 94.8 fl (80-96); MEAN PLT VOLUME 8.8 fl (7.5-11.1); MONO % 8.6 % (3.8-10.2); NEUT % 70.1 % (42.8-82.8); PLATELET COUNT 312 10^3/uL (134-434); RBC 4.28 M/mm3 (3.60-5.2); RDW 13.6 % (11.6-15.6); WHITE BLOOD COUNT 9.6 K/mm3 (4.0-10.0)
[2023-04-28 11:18] LABS: POTASSIUM 4.6 mmol/L (3.5-5.1)
[2023-04-28 11:20] LABS: CALCIUM 8.5 mg/dL (8.5-10.1)
[2023-04-28 11:21] LABS: ALBUMIN 2.9 g/dl (3.4-5.0); BLOOD UREA NITROGEN 3.4 mg/dL (7-18)
[2023-04-28 11:24] LABS: CREATININE 0.6 mg/dL (0.55-1.3)
[2023-04-28 11:25] LABS: BILIRUBIN,TOTAL 0.4 mg/dL (0.2-1); TOT PROT 6.5 g/dl (6.4-8.2)
[2023-04-29] MEDS: PIPERACILLIN/TAZOB 4.5 GM 4.5 GM in DEXTROSE 5%-WATER 100 ML IVPB SCH ×2 (02:44→10:29)
[2023-04-29] MEDS: LEVOTHYROXINE NA 75 MCG TABLET (FP) PO SCH (06:34)
[2023-04-29] MEDS: ENOXAPARIN NA (PORCINE) 40 MG/0.4 ML DISP.SYRIN SQ SCH (10:25)
[2023-04-29] MEDS: metoPROLOL SUCCINATE 25 MG TAB.SR.24H (FP) PO SCH (10:27)
[2023-04-29] MEDS: PANTOPRAZOLE 40 MG TABLET PO SCH (10:28)
[2023-04-29] MEDS: LOSARTAN POTASSIUM 50 MG TABLET PO SCH (10:28)
[2023-04-29 14:39] VITALS: BP 162/90; PULSE 72; RESP 18; TEMP 97.5
== END 2023-04-29 14:58 | disposition home or self-care (01) | DRG 373 ==
LOC: JER 06:31 → JERBED 12:32 → J6S 18:08
PROVIDERS: ADMIT Internal Medicine; ATTEND Internal Medicine
DX: K35.33 Acute appendicitis with perforation, localized peritonitis, and gangrene, with abscess (principal); I10 Essential (primary) hypertension; E03.9 Hypothyroidism, unspecified; R19.7 Diarrhea, unspecified; E78.5 Hyperlipidemia, unspecified; K21.9 Gastro-esophageal reflux disease without esophagitis
CPT/HCPCS: 36415; 74177-TC; 80053; 81003; 82378; 82962; 83690; 83735; 85025; 85610; 85730; 86140; 86850; 86900; 86901; 87040; 87086; 87324; 87449; 93005; 93010; 99285-25; Q9967

== ENCOUNTER 2023-05-11 11:55 | Inpatient (IN) | payer OTHER ==
[2023-05-11 12:01] VITALS: BMI 34.5
[2023-05-11] MEDS ORDERED: ACETAMINOPHEN 1000 MG/100 ML BAG IVPB ONE (14:15)
[2023-05-11 14:23] LABS: BASO % 0.9 % (0-2.0); EOS % 0.6 % (0-4.5); HEMOGLOBIN 13.5 GM/dL (10.7-15.3); LYMPH % 20.6 % (8-40); MCH 31.8 pg (25.7-33.7); MCHC 32.9 g/dl (32.0-36.0); MEAN CELL VOLUME 96.6 fl (80-96); MEAN PLT VOLUME 10.5 fl (7.5-11.1); MONO % 11.1 % (3.8-10.2); NEUT % 66.8 % (42.8-82.8); PLATELET COUNT 363 10^3/uL (134-434); RBC 4.24 M/mm3 (3.60-5.2); RDW 14.3 % (11.6-15.6); WHITE BLOOD COUNT 10.4 K/mm3 (4.0-10.0)
[2023-05-11] MEDS ORDERED: ACETAMINOPHEN INJECTION 100 ML IVPB ONE (14:25)
[2023-05-11 14:30] LABS: INR 1.08 (0.83-1.09); PROTHROMBIN TIME (PATIENT) 12.5 SEC (9.7-13.0)
[2023-05-11 14:32] LABS: ACTIVATED PTT 29.1 SECONDS (25.2-36.5)
[2023-05-11 14:43] LABS: POTASSIUM 5.1 mmol/L (3.5-5.1)
[2023-05-11 14:45] LABS: CALCIUM 8.9 mg/dL (8.5-10.1)
[2023-05-11 14:46] LABS: ALBUMIN 3.1 g/dl (3.4-5.0); BLOOD UREA NITROGEN 12.3 mg/dL (7-18)
[2023-05-11 14:49] LABS: CREATININE 0.5 mg/dL (0.55-1.3)
[2023-05-11 14:50] LABS: BILIRUBIN,TOTAL 0.7 mg/dL (0.2-1); TOT PROT 6.9 g/dl (6.4-8.2)
[2023-05-11] MEDS ORDERED: KETOROLAC TROMETHAMINE 15 MG/ML VIAL IVPUSH PRN (16:50)
[2023-05-11] MEDS ORDERED: ACETAMINOPHEN 500 MG TABLET (FP) PO PRN (16:51)
[2023-05-11] MEDS: DEXTROSE 5%-0.45% SALINE 1,000 ML IV SCH (17:46)
[2023-05-11] MEDS ORDERED: CEFTRIAXONE 1 GM/50 ML BAG ONE (17:49)
[2023-05-11] MEDS: CEFTRIAXONE 1 GM in DEXTROSE 5%-WATER - 50 ML IVPB SCH (17:54)
[2023-05-11 18:12] LABS: PH,URINE 5.5 (5.0-8.0); URINE APPEARANCE CLEAR; URINE BILIRUBIN NEGATIVE (NEGATIVE); URINE COLOR YELLOW; URINE GLUCOSE (UA) NEGATIVE (NEGATIVE); URINE KETONE TRACE (NEGATIVE); URINE LEUK ESTERASE NEGATIVE (NEGATIVE); URINE NITRITE NEGATIVE (NEGATIVE); URINE PROTEIN NEGATIVE (NEGATIVE)
[2023-05-11] MEDS: POLYETHYLENE GLYCOL (HEALTHYLAX) 3350 17 GM PACKET PO SCH (21:50)
[2023-05-12 09:51] LABS: BASO % 0.6 % (0-2.0); EOS % 1.9 % (0-4.5); HEMATOCRIT 38.6 % (32.4-45.2); HEMOGLOBIN 12.9 GM/dL (10.7-15.3); LYMPH % 25.3 % (8-40); MCH 32.2 pg (25.7-33.7); MCHC 33.5 g/dl (32.0-36.0); MEAN CELL VOLUME 96.1 fl (80-96); MEAN PLT VOLUME 9.4 fl (7.5-11.1); MONO % 12.4 % (3.8-10.2); NEUT % 59.8 % (42.8-82.8); PLATELET COUNT 271 10^3/uL (134-434); RBC 4.02 M/mm3 (3.60-5.2); RDW 13.7 % (11.6-15.6); WHITE BLOOD COUNT 8.5 K/mm3 (4.0-10.0)
[2023-05-12] MEDS ORDERED: CEFTRIAXONE 1 GM in DEXTROSE 5%-WATER - 50 ML IVPB SCH (10:00)
[2023-05-12 10:10] LABS: POTASSIUM 4.2 mmol/L (3.5-5.1)
[2023-05-12] MEDS: POLYETHYLENE GLYCOL (HEALTHYLAX) 3350 17 GM PACKET PO SCH ×2 (10:24→21:50)
[2023-05-12] MEDS: CEFTRIAXONE 1 GM in DEXTROSE 5%-WATER - 50 ML IVPB SCH (10:24)
[2023-05-12 10:45] LABS: ALBUMIN 2.8 g/dl (3.4-5.0); BLOOD UREA NITROGEN 7.5 mg/dL (7-18); CALCIUM 8.2 mg/dL (8.5-10.1)
[2023-05-12 10:48] LABS: CREATININE 0.4 mg/dL (0.55-1.3)
[2023-05-12 10:50] LABS: BILIRUBIN,TOTAL 0.7 mg/dL (0.2-1); TOT PROT 6.2 g/dl (6.4-8.2)
[2023-05-12] MEDS: DEXTROSE 5%-0.45% SALINE 1,000 ML IV SCH ×3 (13:30→23:28)
[2023-05-13] MEDS: CEFTRIAXONE 1 GM in DEXTROSE 5%-WATER - 50 ML IVPB SCH (10:58)
[2023-05-13] MEDS: POLYETHYLENE GLYCOL (HEALTHYLAX) 3350 17 GM PACKET PO SCH ×4 (10:59→21:16)
[2023-05-13] MEDS ORDERED: INDOCYANINE GREEN 25 MG/10 ML VIAL IVPUSH ONE ×3 (12:26→16:21)
[2023-05-13] MEDS: DEXTROSE 5%-0.45% SALINE 1,000 ML IV SCH ×2 (12:35→21:05)
[2023-05-13] MEDS ORDERED: BUPIVACAINE HCL/PF 0.25% (2.5MG/ML) 10 ML VIAL ONE (12:37)
[2023-05-13] MEDS ORDERED: ACETAMINOPHEN INJECTION 100 ML IVPB ONE (12:37)
[2023-05-13] MEDS ORDERED: HEPARIN NA (PORCINE) 5,000 UNITS/ML 1ML VIAL ONE (12:38)
[2023-05-13] MEDS ORDERED: cefOXitin SODIUM 2 GM VIAL (RESTRICTED TO ID) IVPB ONE (12:38)
[2023-05-13] MEDS ORDERED: CEFOXITIN SODIUM 1 GM IVPB ONE (12:38)
[2023-05-13] MEDS ORDERED: BUPIVACAINE HCL/PF 0.25% (2.5MG/ML) 10 ML VIAL IJ ONE ×2 (13:11→15:05)
[2023-05-13] MEDS ORDERED: ONDANSETRON 4 MG/2 ML VIAL IVPUSH PRN ×2 (13:42→18:07)
[2023-05-13] MEDS ORDERED: PROMETHAZINE HCL 25 MG/1 ML VIAL IVPB PRN ×2 (13:42→18:07)
[2023-05-13] MEDS ORDERED: LACTATED RINGERS SOLUTION 1,000 ML IV SCH ×2 (13:45→17:30)
[2023-05-13] MEDS ORDERED: ROCURONIUM BROMIDE 50 MG/5 ML SYRINGE ONE (13:48)
[2023-05-13] MEDS ORDERED: MIDAZOLAM HCL 2 MG/2 ML SINGLE DOSE VIAL ONE (13:48)
[2023-05-13] MEDS ORDERED: PROPOFOL 20 ML ONE (13:48)
[2023-05-13] MEDS ORDERED: DEXAMETHASONE SOD PHOSPHATE 4 MG/1 ML VIAL ONE (15:23)
[2023-05-13] MEDS ORDERED: ONDANSETRON 4 MG/2 ML VIAL ONE (15:23)
[2023-05-13] MEDS ORDERED: NEOSTIGMINE METHYLSULFATE 0.5 MG/1 ML - 10 ML MDV ONE (16:15)
[2023-05-13] MEDS ORDERED: GLYCOPYRROLATE 0.2 MG/1 ML VIAL ONE (16:16)
[2023-05-13] MEDS ORDERED: METOPROLOL TARTRATE 5 MG/5 ML VIAL ONE (16:27)
[2023-05-13] MEDS ORDERED: hydrALAZINE HCL 20 MG/ML VIAL IVPUSH ONE (17:40)
[2023-05-13] MEDS ORDERED: oxyCODONE HCL 5 MG TABLET PO PRN ×2 (17:44)
[2023-05-13] MEDS ORDERED: KETOROLAC TROMETHAMINE 30 MG/1 ML VIAL IM PRN (17:44)
[2023-05-13] MEDS: LACTATED RINGERS SOLUTION 1,000 ML IV SCH (20:59)
[2023-05-13] MEDS: ACETAMINOPHEN 1000 MG/100 ML BAG IVPB SCH (23:09)
[2023-05-14] MEDS: ACETAMINOPHEN 1000 MG/100 ML BAG IVPB SCH ×3 (05:31→17:25)
[2023-05-14] MEDS: POLYETHYLENE GLYCOL (HEALTHYLAX) 3350 17 GM PACKET PO SCH ×3 (09:41→22:07)
[2023-05-14] MEDS: CEFTRIAXONE 1 GM in DEXTROSE 5%-WATER - 50 ML IVPB SCH (09:41)
[2023-05-14] MEDS: LEVOTHYROXINE NA 75 MCG TABLET (FP) PO SCH (12:26)
[2023-05-14] MEDS: LOSARTAN POTASSIUM 50 MG TABLET PO SCH (12:26)
[2023-05-14] MEDS: metoPROLOL SUCCINATE 25 MG TAB.SR.24H (FP) PO SCH ×2 (12:26→22:06)
[2023-05-14 16:24] LABS: BASO % 0.4 % (0-2.0); EOS % 0.1 % (0-4.5); HEMATOCRIT 38.9 % (32.4-45.2); HEMOGLOBIN 12.7 GM/dL (10.7-15.3); LYMPH % 11.1 % (8-40); MCH 31.6 pg (25.7-33.7); MCHC 32.8 g/dl (32.0-36.0); MEAN CELL VOLUME 96.5 fl (80-96); MEAN PLT VOLUME 9.4 fl (7.5-11.1); MONO % 10.8 % (3.8-10.2); NEUT % 77.6 % (42.8-82.8); PLATELET COUNT 308 10^3/uL (134-434); RBC 4.03 M/mm3 (3.60-5.2); RDW 13.9 % (11.6-15.6); WHITE BLOOD COUNT 15.7 K/mm3 (4.0-10.0)
[2023-05-14 17:02] LABS: POTASSIUM 3.9 mmol/L (3.5-5.1)
[2023-05-14 17:04] LABS: CALCIUM 8.3 mg/dL (8.5-10.1)
[2023-05-14 17:05] LABS: ALBUMIN 2.7 g/dl (3.4-5.0); BLOOD UREA NITROGEN 7.5 mg/dL (7-18)
[2023-05-14 17:08] LABS: CREATININE 0.6 mg/dL (0.55-1.3)
[2023-05-14 17:09] LABS: BILIRUBIN,TOTAL 0.4 mg/dL (0.2-1); TOT PROT 5.8 g/dl (6.4-8.2)
[2023-05-14] MEDS: LACTATED RINGERS SOLUTION 1,000 ML IV SCH (18:37)
[2023-05-14] MEDS: HEPARIN NA (PORCINE) 5,000 UNITS/ML 1ML VIAL SQ SCH (22:06)
[2023-05-15] MEDS ORDERED: TRIMETHOBENZAMIDE HCL 200MG/2ML INJ IM PRN ×2 (01:33→15:41)
[2023-05-15] MEDS: LEVOTHYROXINE NA 75 MCG TABLET (FP) PO SCH ×2 (06:38→06:40)
[2023-05-15] MEDS: metoPROLOL SUCCINATE 25 MG TAB.SR.24H (FP) PO SCH ×2 (09:29→21:26)
[2023-05-15] MEDS: LOSARTAN POTASSIUM 50 MG TABLET PO SCH (09:29)
[2023-05-15] MEDS: HEPARIN NA (PORCINE) 5,000 UNITS/ML 1ML VIAL SQ SCH ×2 (09:30→21:20)
[2023-05-15 09:31] LABS: BASO % 0.4 % (0-2.0); EOS % 0.2 % (0-4.5); HEMOGLOBIN 14.3 GM/dL (10.7-15.3); LYMPH % 5.3 % (8-40); MCH 31.4 pg (25.7-33.7); MCHC 32.6 g/dl (32.0-36.0); MEAN CELL VOLUME 96.3 fl (80-96); MEAN PLT VOLUME 9.4 fl (7.5-11.1); MONO % 6.1 % (3.8-10.2); PLATELET COUNT 353 10^3/uL (134-434); RBC 4.57 M/mm3 (3.60-5.2); RDW 14.2 % (11.6-15.6); WHITE BLOOD COUNT 17.7 K/mm3 (4.0-10.0)
[2023-05-15] MEDS: CEFTRIAXONE 1 GM in DEXTROSE 5%-WATER - 50 ML IVPB SCH (09:31)
[2023-05-15] MEDS: POLYETHYLENE GLYCOL (HEALTHYLAX) 3350 17 GM PACKET PO SCH ×3 (09:35→21:57)
[2023-05-15] MEDS: LACTATED RINGERS SOLUTION 1,000 ML IV SCH (09:38)
[2023-05-15 09:46] LABS: POTASSIUM 4.1 mmol/L (3.5-5.1)
[2023-05-15 09:57] LABS: CALCIUM 8.4 mg/dL (8.5-10.1)
[2023-05-15 09:58] LABS: ALBUMIN 2.8 g/dl (3.4-5.0); BLOOD UREA NITROGEN 10.5 mg/dL (7-18)
[2023-05-15] MEDS: PANTOPRAZOLE 40 MG TABLET PO SCH (09:58)
[2023-05-15 10:01] LABS: CREATININE 0.6 mg/dL (0.55-1.3)
[2023-05-15 10:04] LABS: BILIRUBIN,TOTAL 0.7 mg/dL (0.2-1)
[2023-05-15] MEDS ORDERED: ACETAMINOPHEN 1000 MG/100 ML BAG IVPB PRN (10:25)
[2023-05-15] MEDS ORDERED: ONDANSETRON 4 MG/2 ML VIAL IVPUSH PRN (10:25)
[2023-05-15] MEDS: DEXTROSE 5%-0.45% SALINE 1,000 ML IV SCH ×2 (13:50→22:40)
[2023-05-16] MEDS: LEVOTHYROXINE NA 75 MCG TABLET (FP) PO SCH (06:29)
[2023-05-16] MEDS: DEXTROSE 5%-0.45% SALINE 1,000 ML IV SCH ×3 (07:55→17:22)
[2023-05-16 09:30] LABS: BASO % 0.6 % (0-2.0); HEMATOCRIT 41.4 % (32.4-45.2); HEMOGLOBIN 13.4 GM/dL (10.7-15.3); LYMPH % 13.3 % (8-40); MCH 31.5 pg (25.7-33.7); MCHC 32.3 g/dl (32.0-36.0); MEAN CELL VOLUME 97.3 fl (80-96); MEAN PLT VOLUME 9.2 fl (7.5-11.1); MONO % 9.5 % (3.8-10.2); NEUT % 74.6 % (42.8-82.8); PLATELET COUNT 323 10^3/uL (134-434); RBC 4.25 M/mm3 (3.60-5.2); RDW 13.7 % (11.6-15.6); WHITE BLOOD COUNT 17.6 K/mm3 (4.0-10.0)
[2023-05-16 09:54] LABS: POTASSIUM 3.9 mmol/L (3.5-5.1)
[2023-05-16 09:56] LABS: ALBUMIN 2.4 g/dl (3.4-5.0); BLOOD UREA NITROGEN 8.8 mg/dL (7-18); CALCIUM 7.8 mg/dL (8.5-10.1)
[2023-05-16 09:59] LABS: CREATININE 0.5 mg/dL (0.55-1.3)
[2023-05-16 10:01] LABS: BILIRUBIN,TOTAL 0.4 mg/dL (0.2-1); TOT PROT 5.4 g/dl (6.4-8.2)
[2023-05-16] MEDS: PANTOPRAZOLE 40 MG TABLET PO SCH (10:26)
[2023-05-16] MEDS: HEPARIN NA (PORCINE) 5,000 UNITS/ML 1ML VIAL SQ SCH ×2 (10:26→21:37)
[2023-05-16] MEDS: LOSARTAN POTASSIUM 50 MG TABLET PO SCH (10:26)
[2023-05-16] MEDS: metoPROLOL SUCCINATE 25 MG TAB.SR.24H (FP) PO SCH ×2 (10:26→21:44)
[2023-05-16] MEDS: CEFTRIAXONE 1 GM in DEXTROSE 5%-WATER - 50 ML IVPB SCH (10:27)
[2023-05-16] MEDS: POLYETHYLENE GLYCOL (HEALTHYLAX) 3350 17 GM PACKET PO SCH ×2 (10:37→21:43)
[2023-05-17] MEDS: DEXTROSE 5%-0.45% SALINE 1,000 ML IV SCH ×2 (02:14→20:15)
[2023-05-17] MEDS: LEVOTHYROXINE NA 75 MCG TABLET (FP) PO SCH (06:17)
[2023-05-17 09:42] LABS: BASO % 0.5 % (0-2.0); EOS % 6.7 % (0-4.5); HEMATOCRIT 37.8 % (32.4-45.2); HEMOGLOBIN 12.7 GM/dL (10.7-15.3); LYMPH % 19.8 % (8-40); MCH 31.9 pg (25.7-33.7); MCHC 33.5 g/dl (32.0-36.0); MEAN CELL VOLUME 95.1 fl (80-96); MEAN PLT VOLUME 8.9 fl (7.5-11.1); MONO % 9.8 % (3.8-10.2); NEUT % 63.2 % (42.8-82.8); PLATELET COUNT 283 10^3/uL (134-434); RBC 3.97 M/mm3 (3.60-5.2); RDW 14.3 % (11.6-15.6); WHITE BLOOD COUNT 12.2 K/mm3 (4.0-10.0)
[2023-05-17 10:17] LABS: POTASSIUM 3.7 mmol/L (3.5-5.1)
[2023-05-17] MEDS: HEPARIN NA (PORCINE) 5,000 UNITS/ML 1ML VIAL SQ SCH ×2 (10:19→22:04)
[2023-05-17] MEDS: metoPROLOL SUCCINATE 25 MG TAB.SR.24H (FP) PO SCH ×2 (10:19→22:05)
[2023-05-17] MEDS: LOSARTAN POTASSIUM 50 MG TABLET PO SCH (10:19)
[2023-05-17] MEDS: PANTOPRAZOLE 40 MG TABLET PO SCH (10:19)
[2023-05-17 10:20] LABS: CALCIUM 7.7 mg/dL (8.5-10.1)
[2023-05-17] MEDS: CEFTRIAXONE 1 GM in DEXTROSE 5%-WATER - 50 ML IVPB SCH (10:20)
[2023-05-17 10:21] LABS: ALBUMIN 2.2 g/dl (3.4-5.0); BLOOD UREA NITROGEN 4.2 mg/dL (7-18)
[2023-05-17 10:24] LABS: CREATININE 0.4 mg/dL (0.55-1.3)
[2023-05-17 10:26] LABS: BILIRUBIN,TOTAL 0.4 mg/dL (0.2-1)
[2023-05-17] MEDS: POLYETHYLENE GLYCOL (HEALTHYLAX) 3350 17 GM PACKET PO SCH ×2 (10:44→22:04)
[2023-05-18] MEDS: LEVOTHYROXINE NA 50 MCG TABLET (FP) PO SCH (07:32)
[2023-05-18] MEDS: HEPARIN NA (PORCINE) 5,000 UNITS/ML 1ML VIAL SQ SCH ×2 (09:39→21:50)
[2023-05-18] MEDS: LOSARTAN POTASSIUM 50 MG TABLET PO SCH (09:39)
[2023-05-18] MEDS: POLYETHYLENE GLYCOL (HEALTHYLAX) 3350 17 GM PACKET PO SCH ×2 (09:39→21:51)
[2023-05-18] MEDS: PANTOPRAZOLE 40 MG TABLET PO SCH (09:39)
[2023-05-18] MEDS: CEFTRIAXONE 1 GM in DEXTROSE 5%-WATER - 50 ML IVPB SCH (09:39)
[2023-05-18] MEDS: metoPROLOL SUCCINATE 25 MG TAB.SR.24H (FP) PO SCH ×2 (09:39→21:50)
[2023-05-18] MEDS: AMINO ACIDS/PROTEIN HYDROLYS 30 ML LIQUID.PKT PO SCH ×2 (11:52→17:23)
[2023-05-18] MEDS: DEXTROSE 5%-0.45% SALINE 1,000 ML IV SCH (17:22)
[2023-05-18 21:44] VITALS: RESP 20
[2023-05-19] MEDS: LEVOTHYROXINE NA 50 MCG TABLET (FP) PO SCH (06:59)
[2023-05-19 09:48] LABS: BASO % 0.6 % (0-2.0); EOS % 4.4 % (0-4.5); HEMATOCRIT 40.3 % (32.4-45.2); HEMOGLOBIN 13.1 GM/dL (10.7-15.3); LYMPH % 20.2 % (8-40); MCH 31.7 pg (25.7-33.7); MCHC 32.4 g/dl (32.0-36.0); MEAN CELL VOLUME 97.7 fl (80-96); MONO % 10.6 % (3.8-10.2); NEUT % 64.2 % (42.8-82.8); PLATELET COUNT 301 10^3/uL (134-434); RBC 4.12 M/mm3 (3.60-5.2); WHITE BLOOD COUNT 10.8 K/mm3 (4.0-10.0)
[2023-05-19] MEDS: metoPROLOL SUCCINATE 25 MG TAB.SR.24H (FP) PO SCH (09:48)
[2023-05-19] MEDS: PANTOPRAZOLE 40 MG TABLET PO SCH (09:48)
[2023-05-19] MEDS: LOSARTAN POTASSIUM 50 MG TABLET PO SCH (09:48)
[2023-05-19] MEDS: CEFTRIAXONE 1 GM in DEXTROSE 5%-WATER - 50 ML IVPB SCH ×2 (09:49→11:39)
[2023-05-19] MEDS: POLYETHYLENE GLYCOL (HEALTHYLAX) 3350 17 GM PACKET PO SCH (09:49)
[2023-05-19] MEDS: HEPARIN NA (PORCINE) 5,000 UNITS/ML 1ML VIAL SQ SCH (09:50)
[2023-05-19] MEDS: AMINO ACIDS/PROTEIN HYDROLYS 30 ML LIQUID.PKT PO SCH ×2 (09:50→13:37)
[2023-05-19 10:09] LABS: POTASSIUM 3.8 mmol/L (3.5-5.1)
[2023-05-19 10:17] LABS: ALBUMIN 2.5 g/dl (3.4-5.0); CALCIUM 8.2 mg/dL (8.5-10.1)
[2023-05-19 10:19] LABS: BLOOD UREA NITROGEN 7.2 mg/dL (7-18)
[2023-05-19 10:22] LABS: BILIRUBIN,TOTAL 0.5 mg/dL (0.2-1); CREATININE 0.4 mg/dL (0.55-1.3); TOT PROT 5.5 g/dl (6.4-8.2)
[2023-05-19] MEDS ORDERED: metroNIDAZOLE 250 MG TABLET PO ONE (11:45)
[2023-05-19] MEDS ORDERED: CEFUROXIME AXETIL 500 MG TABLET PO ONE (11:45)
[2023-05-19 12:02] VITALS: BP 143/67; PULSE 77; TEMP 98.5
== END 2023-05-19 12:35 | disposition home or self-care (01) | DRG 330 ==
LOC: JER 11:55 → JERBED 20:39 → J5S 23:34 → OBSVTOIN 05-13 10:09 → J2C 05-13 14:32 → J8W 05-13 20:22
PROVIDERS: ADMIT Internal Medicine; ATTEND Internal Medicine
PROC: 0DQB4ZZ Repair Ileum, Percutaneous Endoscopic Approach (ICD-10-PCS; 2023-05-13)
PROC: 0DTJ4ZZ Resection of Appendix, Percutaneous Endoscopic Approach (ICD-10-PCS; principal; 2023-05-13 14:00)
DX: K35.33 Acute appendicitis with perforation, localized peritonitis, and gangrene, with abscess (principal); K56.7 Ileus, unspecified; K91.89 Other postprocedural complications and disorders of digestive system; K91.71 Accidental puncture and laceration of a digestive system organ or structure during a digestive system procedure; K21.9 Gastro-esophageal reflux disease without esophagitis; I10 Essential (primary) hypertension; E78.5 Hyperlipidemia, unspecified; K64.8 Other hemorrhoids; K44.9 Diaphragmatic hernia without obstruction or gangrene; E03.9 Hypothyroidism, unspecified; E04.2 Nontoxic multinodular goiter; Y83.8 Other surgical procedures as the cause of abnormal reaction of the patient, or of later complication, without mention of misadventure at the time of the procedure; K66.0 Peritoneal adhesions (postprocedural) (postinfection); Z96.653 Presence of artificial knee joint, bilateral
CPT/HCPCS: 36415; 74177-TC; 80053; 81003; 83690; 84436; 84443; 85025; 85610; 85730; 86140; 86850; 86900; 86901; 87040; 87045; 87046; 87086; 88304-TC; 93005; 93010; 94760; 97116-GP; 97162-GP; 99285-25; G0378; J1644

== ENCOUNTER 2023-12-31 04:37 | Day surgery (SDC) | payer OTHER ==
[2023-12-29 09:54] VITALS: BMI 34.2
[2023-12-31 11:40] VITALS: RESP 18; TEMP 97.8
[2023-12-31 12:22] VITALS: BP 137/76; PULSE 60
== END 2023-12-31 12:22 | disposition home or self-care (01) ==
LOC: JASU-ENDO 04:37
PROVIDERS: ATTEND Internal Medicine Gastroenterology
PROC: 0DBP8ZX Excision of Rectum, Via Natural or Artificial Opening Endoscopic, Diagnostic (ICD-10-PCS; principal; 2023-12-31 11:00)
DX: Z12.11 Encounter for screening for malignant neoplasm of colon (principal); K62.1 Rectal polyp; K57.30 Diverticulosis of large intestine without perforation or abscess without bleeding; K64.8 Other hemorrhoids; Z98.0 Intestinal bypass and anastomosis status
CPT/HCPCS: 82962; 88305-TC